=== PATIENT | female | born 1960 | race Caucasian/White ===

== ENCOUNTER 2017-11-05 06:43 | Day surgery (SDC) | payer OTHER, SELFPAY ==
[2017-11-02 09:35] VITALS: BMI 47.9
[2017-11-05] VITALS (7 sets, daily range): BP systolic 104–135; BP diastolic 58–90; PULSE 94–105; RESP 12–20; TEMP 36.4–37; O2SAT 92–95; BMI 47.9
--- NOTE | 2017-11-05 | PATH_ITS ---
[facility] Accession Number: [id number] . 01 Material submitted: . PART A: ENDOCERVICAL CURETTINGS PART B: ENDOMETRIAL CURETTINGS . 02 Diagnosis: A. Endocervical Curettings: Blood containing rare fragment of endocervical epithelium, negative for atypia. . B. Endometrial Curettings: Multiple fragments of endometrium consistent with fragments of benign endometrial polyp, negative for atypia. Tissue fragment consistent with submucous leiomyoma, negative for atypia. [facility]/11/06/2017 . 02 Electronically signed: . Raimundo Gregorio MD, Pathologist NPI- [id number] . 01 Gross description: . Received two formalin-filled containers, both labeled with the patient's name: . A. In a container labeled 1. ECC, the specimen consists of approximately a 1.0 cc aggregate of mucoid material and blood, which is filtered, wrapped, and entirely submitted in cassette A. B. In a container labeled endometrial curettings, the specimen consists of approximately a 7 cc aggregate of mucoid material and blood, which is filtered and entirely submitted in cassettes B1 and B2. ([id number]) /FRR . 02 Pathologist provided ICD-10: D25.9 . 02 CPT . 749752, [id number] Performed at: [address] [facility] [address] [facility], [place], [place] [id number] MD Lucio Veliz MD Phone: [phone] Performed at: 02 [facility] [address] [place], [place] [id number] MD Tremayne Scales MD Phone: [phone]
[2017-11-05] MEDS: LACTATED RINGERS 1,000 ML 42 ML IV (07:20)
--- NOTE | 2017-11-05 08:03 | PM.PREOP ---
Pre-operative Note Interval Note Pre-op Check: Yes History & Physical Reviewed by Physician Changes: No
[2017-11-05] MEDS: DOXYCYCLINE 100 MG in SODIUM CHLORIDE 0.9% 100 ML IV (10:18)
--- NOTE | 2017-11-05 10:39 | SUR.OPER ---
Lithotomy on padded OR bed, head on pillow, arms secured on padded arm boards at <90 degrees abduction. Legs secured in padded yellow fins stirrups.
[2017-11-05] MEDS: BUPIVACAINE 0.25% W/ EPI VIAL 50 ML INJ (10:48)
--- NOTE | 2017-11-05 11:18 | P.OP_ITS ---
Operative Date/Time/Diagnoses Date of procedure: 11/05/17 Time of procedure: 10:30 Pre-op diagnosis: Postmenopausal bleeding, thickened endometrium Post-op diagnosis: other (Postmenopausal bleeding, endometrial polyp) Procedure: Procedures Operation Date: 11/05/17 07:45 Actual Procedures Side Surgeon p Fractional Hysteroscopy D&C Pippa Peck MD Indications: The patient is a 57-year-old 2 para 2 female with postmenopausal bleeding here for hysteroscopy and dilation curettage for evaluation management of such. Preoperative evaluation included a transvaginal ultrasound, which showed anterior endometrial thickening, suggestive of possible 1.5 cm submucosal fibroid. The risks, benefits, limitations, alternatives, and expectations of surgery were discussed, and the consent was reviewed and signed prior to the surgery. Surgeon: Pippa Peck Anesthesia Type: General and Local (0.25% Marcaine with epi) Operative Notes Findings: Exam under anesthesia: The uterus was approximately 8 weeks in size and anteverted. There are no adnexal masses palpable. Posterior vaginal prolapse was noted, consistent with an enterocele and rectocele (approximately stage II). Hysteroscopic findings: The endometrial cavity was visualized, and the tubal ostia seen. A small, approximately 3-4 6 mm, endometrial polyp was noted at the lower uterine segment. The endometrium was thickened in appearance; however , upon completion of curettage no other endometrial masses were noted. Closure Type: not applicable Specimen(s): endometrial curettings and other (endocervical curettings) Estimated blood loss (mL): 3 Blood products transfused: none Procedure in detail: The patient was taken to the operating room where general anesthesia with LMA was administered without difficulty. She was then placed in the high dorsal lithotomy position with her lower extremities in [place] stirrups. Exam under anesthesia was then performed with the findings as noted above. Perineum and vagina were then prepped and draped in a sterile fashion, and in-and-out catheterization was performed. Procedure Time-Out was performed. A sterile bivalve speculum was then placed. The anterior lip of the cervix was then grasped with a single-toothed tenaculum. Local anesthetic using 0.25% Marcaine with epinephrine was then injected at the 2:00, 4:00, 7:00, and 10:00 positions for a paracervical block. The cervix was then serially dilated until a 22 F 30-degree hysteroscope could be gently advanced to the uterine fundus. Using sterile saline for distention, the uterine cavity was visualized with the findings as noted above. Endocervical curettage was performed followed by endometrial curettage on all 4 martínez of the uterus. A small amount of tissue was obtained and sent for pathology. Upon replacement of the hysteroscope, the polyp lesion was noted. The hysteroscope was then removed. Polyp forceps were then utilized to remove the 3-4 mm polyp. The hysteroscope was then reintroduced and no residual masses or polyps were noted. The hysteroscope and tenaculum were then removed. The tenaculum sites were hemostatic after application of pressure with a sponge stick. All instruments were then removed from the vagina. At this point, the procedure was deemed complete. Sponge, lap, and needle count were correct x3. There were no complications. The patient was then taken to the recovery room in stable condition. Complications: none Post-operative Condition: stable Disposition: same day surgery Plan for aftercare: PACU then home; see dishcarge instructions.
--- NOTE | 2017-11-05 11:49 | SUR.PHASEII ---
Mild sore throat. Small amount of dge to peripad with cough. New pads given to patient.
--- NOTE | 2017-11-05 12:13 | SUR.PHASEII ---
Discussed s/s of low blood sugar and to take precaution against such to day since nutritional intake will probably be limited. Somewhat deliberate in dsg and then using BR prolonging Phase II stay.
== END 2017-11-05 12:14 | disposition home or self-care (01) ==
PROVIDERS: Visit Provider Obstetrics & Gynecology
PROC: 0UDB8ZZ Extraction of Endometrium, Via Natural or Artificial Opening Endoscopic (ICD-10-PCS; CPT 58558; principal; 2017-11-05 07:45)
DX: D25.9 Leiomyoma of uterus, unspecified (principal); N84.0 Polyp of corpus uteri; E11.9 Type 2 diabetes mellitus without complications; I10 Essential (primary) hypertension; E66.9 Obesity, unspecified; G47.33 Obstructive sleep apnea (adult) (pediatric)
CPT/HCPCS: 58558; 88305; J1885; J2250; J2405; J2704; J3010

== ENCOUNTER 2018-05-12 20:31 | Emergency (ER) | payer OTHER, SELFPAY ==
[2018-05-12 20:37] VITALS: BP 131/59; PULSE 108; RESP 18; TEMP 36.7; O2SAT 93; BMI 47.2
--- NOTE | 2018-05-12 21:00 | ED_ITS ---
HPI - Ear Problem <DYLAN Lunsford-BC - Last Filed: 05/12/18 21:50> General Chief complaint: Ear Stated complaint: had sinus infection, now ears are clogged Time Seen by Provider: 05/12/18 20:42 Source: patient and family Mode of arrival: ambulatory Limitations: no limitations History of Present Illness HPI Narrative: Patient is a 57-year-old female with history of hypertension who presents with her for chief complaint of ears being plugged. She is a nonsmoker. She was started on amoxicillin for a sinus infection 3 days ago by an outside facility. She states then since then her ears have felt clogged. She denies any fevers nausea vomiting or diarrhea. She denies any shortness of breath or chest pain. She has tried to flush out her ears at home, as the provider on Sunday told her that they were clogged with wax. She has had no relief from this. She has been using sinus rinse, but no Flonase. Related Data Home Medications Medication Instructions Recorded Confirmed venlafaxine [Effexor XR] 150 mg PO QDAY #0 12/07/16 11/05/17 atorvastatin [Lipitor] 40 mg PO DAILY 11/02/17 11/05/17 hydrochlorothiazide 12.5 mg PO DAILY 11/02/17 11/05/17 lisinopril 10 mg PO DAILY 11/02/17 11/05/17 Allergies Allergy/AdvReac Type Severity Reaction Status Date / Time cephalexin [CEPHALEXIN] Allergy Mild Vomiting Verified 11/02/17 13:42 Review of Systems <FANNIE LunsfordBC - Last Filed: 05/12/18 21:50> Review of Systems GENERAL: Denies chills, fatigue, malaise, fever, sweats. HEENT: See HPI RESPIRATORY: See HPI CARDIOVASCULAR: Denies chest pain, palpitations, orthopnea, edema, GASTROINTESTINAL: Denies nausea, vomiting, abdominal pain, diarrhea, constipation, melena. : Denies dysuria, frequency, incontinence, hematuria, urinary retention. MUSCULOSKELETAL: denies weakness, joint pain, or bony pain SKIN: Denies rash, skin lesions, or other NEUROLOGIC: Denies weakness, headache, numbness, change in speech, confusion, seizures, incoordination. PSYCHIATRIC: No concerning psychosocial issues. 12 point review of systems is negative except for those stated above PFSH <PAULINE Lunsford - Last Filed: 05/12/18 21:50> Medical History (Updated 05/12/18 @ 21:42 by PAULINE Lunsford) Arthritis (Acute) Breast cancer, left breast (Acute) Depression (Acute) Diabetes (Acute) Edema (Acute) HTN (hypertension) (Acute) Hyperlipidemia (Acute) Insomnia (Acute) Lateral epicondylitis (Acute) Osteopenia (Acute) Sleep apnea with use of continuous positive airway pressure (CPAP) (Acute) Surgical History (Updated 11/02/17 @ 09:47 by Monica Mascorro RN) History of ankle surgery (Acute) Hx of cholecystectomy (Acute) Hx of shoulder surgery (Acute) S/P lumpectomy, left breast (Acute) Social History household members: spouse Smoking Status: Never smoker alcohol intake: current Social History household members: spouse Smoking Status: Never smoker alcohol intake: current Exam <PAULINE Lunsford - Last Filed: 05/12/18 21:50> Narrative Exam Narrative: GENERAL: Obese female lying on stretcher HEAD: Atraumatic. Normocephalic. No temporal or scalp tenderness. EYES: Pupils equal round and reactive. Extraocular motions intact. No scleral icterus. No injection or drainage. ENT: Nose without bleeding, purulent drainage or septal hematoma. Throat without erythema, tonsillar hypertrophy or exudate. Uvula midline. Airway patent. cerumen impaction noted left ear canal. Right TM pearly chirinos with cerumen. NECK: Trachea midline. No JVD or lymphadenopathy. Supple, nontender, no meningeal signs. CARDIOVASCULAR: Regular rate and rhythm without murmurs, gallops, or rubs. RESPIRATORY: Clear to auscultation. Breath sounds equal bilaterally. No wheezes, rales, or rhonchi. No cough on exam. No increased respiratory effort. No accessory muscle use. GASTROINTESTINAL: Abdomen soft, non-tender, nondistended. No hepato- splenomegaly, or palpable masses. No guarding. EXTREMITIES: No clubbing, cyanosis, or edema. No joint tenderness, effusion, or edema noted. BACK: Nontender without deformity or crepitance. No flank tenderness. NEURO: AOx3. SKIN: No rash or erythema. Initial Vital Signs Initial Vital Signs: Vital Signs Temperature 98.0 F 05/12/18 20:37 Pulse Rate 108 H 05/12/18 20:37 Respiratory Rate 18 05/12/18 20:37 Blood Pressure 131/59 L 05/12/18 20:37 Pulse Oximetry 93 05/12/18 20:37 <Keely Davis MD - Last Filed: 05/12/18 23:10> Initial Vital Signs Initial Vital Signs: Vital Signs Temperature 98.0 F 05/12/18 20:37 Pulse Rate 108 H 05/12/18 20:37 Respiratory Rate 18 05/12/18 20:37 Blood Pressure 131/59 L 05/12/18 20:37 Pulse Oximetry 93 05/12/18 20:37 Course <PAULINE Lunsford - Last Filed: 05/12/18 21:50> Vital Signs - 8 hr 05/12/18 20:37 05/12/18 21:50 Temperature 98.0 F Pulse Rate 108 H 98 H Respiratory Rate 18 18 Blood Pressure 131/59 L 123/76 Pulse Oximetry 93 99 <Keely Davis MD - Last Filed: 05/12/18 23:10> Vital Signs - 8 hr 05/12/18 20:37 05/12/18 21:50 Temperature 98.0 F Pulse Rate 108 H 98 H Respiratory Rate 18 18 Blood Pressure 131/59 L 123/76 Pulse Oximetry 93 99 Medical Decision Making <PAULINE Lunsford - Last Filed: 05/12/18 21:50> MDM Narrative Medical decision making narrative: The patient is a 57-year-old female who presents with a chief complaint of ear pressure. Exam reveals cerumen impaction. Her ears were flushed by nursing staff with good success. She still has no signs and symptoms of otitis media upon exam. She is already being treated for sinusitis with amoxicillin. Encouraged her to keep taking that and add Flonase to help decrease the pressure in her sinuses. She was concerned about her cough, but she is in no obvious respiratory distress, has clear lung sounds the med did not cough during my examination or re-evaluation in the emergency department. I encouraged her to follow up with her primary care provider. Discussed coming back to emergency department for any acute concerns such as chest pain shortness of breath concern for heart attack or stroke. Patient has no questions or concerns upon discharge. Discharge Plan Departure Patient Disposition: Home Clinical Impression: Cerumen impaction Qualifiers: Laterality: left Qualified Code(s): H61.22 - Impacted cerumen, left ear Discharge Date/Time: 05/12/18 21:50 Interventions: ED Discharge Assessment Last Done: 05/12/18 21:50 Instructions: DI for Cerumen Impaction, DI for Cough -- Adult, DI for Ear Pain- Adult Activity Restrictions/Additional Instructions: Today we flushed your ears as they were full of wax. I do not see any signs of infection at this point in time. I believe your cough is related to your sinus problems. Please continue taking her previously prescribed antibiotics. I would add Flonase to your regimen to help decrease the inflammation in your sinuses. Monitor for fever and increased work of breathing. Please follow up with her primary care provider. Please come back to the emergency department for any acute concerns such as chest pain shortness of breath concern for heart attack or stroke. Prescriptions: No Action venlafaxine [Effexor XR] 150 MG capsule,extended release 24hr 150 mg PO QDAY Qty: 0 RF: 0 atorvastatin [Lipitor] 40 mg Tablet 40 mg PO DAILY RF: 0 lisinopril 10 mg Tablet 10 mg PO DAILY RF: 0 hydrochlorothiazide 12.5 mg Capsule 12.5 mg PO DAILY RF: 0
[2018-05-12 21:50] VITALS: BP 123/76; PULSE 98; RESP 18; O2SAT 99
== END 2018-05-12 21:50 | disposition home or self-care (01) ==
PROVIDERS: Emergency Provider Nurse Practitioner Family
DX: H61.23 Impacted cerumen, bilateral (principal)
CPT/HCPCS: 69209; 69210; 99282; 99283

== ENCOUNTER 2019-02-09 11:42 | Emergency (ER) | payer OTHER, SELFPAY ==
[2019-02-09 11:48] VITALS: BP 149/92; PULSE 105; RESP 20; TEMP 36.7; O2SAT 94; BMI 46.7
[2019-02-09 13:00] LABS: Add Manual Diff / Slide Review NO; Basophils Absolute Auto 0 /uL (0-100); Basophils Percent Auto 0.3 % (0-2); Eosinophils Absolute Auto 100 /uL (0-450); Eosinophils Percent Auto 0.7 % (2-4); Hematocrit 41.7 % (36-46); Hemoglobin 14.1 g/dL (12.0-16.0); Lymphocytes Absolute Auto 1000 /uL (1100-4500); Lymphocytes Percent Auto 8.6 % (25-40); Mean Corpuscular HGB Conc 33.8 % (30-36); Mean Corpuscular Hemoglobin 31.5 PG (26-34); Mean Corpuscular Volume 93.4 fL (80-100); Monocytes Absolute Auto 600 /uL (0-900); Monocytes Percent Auto 5.3 % (3-14); Neutrophils Absolute Auto 10100 /uL (1500-7000); Neutrophils Percent Auto 85.1 % (50-75); Platelet Count 253 X10^3/uL (150-400); Red Blood Cell Count 4.47 X10^6/uL (4.0-5.2); Red Cell Distribution Width 13.2 % (11.6-14.8); White Blood Cell Count 11.8 X10^3/uL (4.5-11.0)
[2019-02-09] MEDS: DEXAMETHASONE 10 MG/ML VIAL IV (13:04)
[2019-02-09] MEDS: KETOROLAC 60 MG/2 ML VIAL 30 MG IV (13:04)
[2019-02-09] MEDS: SODIUM CHLORIDE 0.9% 1,000 ML 1000 ML IV (13:04)
[2019-02-09 13:11] LABS: Alanine Aminotransferase 17 IU/L (<35); Albumin 4.4 g/dL (3.5-5.0); Albumin Globulin Ratio 1.2 (1.0-2.8); Alkaline Phosphatase 111 U/L (38-126); Aspartate Aminotransferase 23 IU/L (14-36); BUN Creatinine Ratio 16.7 (6-22); Bilirubin Total 0.6 mg/dL (0.2-1.3); Blood Urea Nitrogen 10 mg/dL (7-17); Calcium 9.8 mg/dL (8.4-10.2); Carbon Dioxide 31 mmol/L (22-32); Chloride 101 mmol/L (98-107); Estimated Glomerular Filt Rate > 60.0 mL/min (>60); Globulin 3.6 g/dL (1.7-4.1); Glucose 154 mg/dL (70-100); HEMOLYSIS < 15 (0-50); Potassium 3.3 mmol/L (3.4-5.1); Sodium 141 mmol/L (137-145)
[2019-02-09] MEDS: CLINDAMYCIN 600 MG/50 ML PIGGYBACK 50 MG IV (13:11)
--- NOTE | 2019-02-09 13:12 | ED.URI ---
HPI - URI/Sore Throat <NED Lazo - Last Filed: 02/09/19 18:29> General Chief Complaint: Upper Respiratory Symptoms Stated Complaint: SORE THROAT GOES UP TO RIGHT INNER EAR Time Seen by Provider: 02/09/19 12:31 Source: patient Mode of arrival: Ambulatory History of Present Illness HPI Narrative: 58-year-old female presents to the emergency department complaining of right-sided throat pain starting yesterday. She states the pain is a dull aching that radiates from her throat up to her right ear. She reports this has came on gradually, she denies any other symptoms such as rhinorrhea or fevers. Patient states her voice has been more muffled this morning. She denies any sick contacts. However, she does report a chronic cough over the past 2-3 months which her primary care provider thought that this might have been from her lisinopril. Patient denies abdominal pain, nausea, vomiting, diarrhea, chest pain, shortness of breath, difficulty swallowing, decreased appetite, difficulty breathing, difficulty maintaining secretions, other concerns. Related Data Home Medications Medication Instructions Recorded Confirmed venlafaxine [Effexor XR] 150 mg PO QDAY #0 12/07/16 11/05/17 atorvastatin [Lipitor] 40 mg PO DAILY 11/02/17 11/05/17 hydrochlorothiazide 12.5 mg PO DAILY 11/02/17 11/05/17 lisinopril 10 mg PO DAILY 11/02/17 11/05/17 Previous Rx's Medication Instructions Recorded clindamycin phosphate 450 mg IM Q8H 14 Days #126 ml 02/09/19 prednisone 50 mg PO DAILY 5 Days #5 tab 02/09/19 Allergies Allergy/AdvReac Type Severity Reaction Status Date / Time cephalexin [CEPHALEXIN] Allergy Mild Vomiting Verified 02/09/19 11:54 Review of Systems <NED Lazo - Last Filed: 02/09/19 18:29> Review of Systems Narrative: REVIEW OF SYSTEMS: GENERAL: Denies fevers. HENT: No head trauma or hearing loss. Patient reports sore throat, see HPI. EYES: No loss of vision, double vision, eye pain, irritation or discharge. CARDIOVASCULAR: No chest pain or syncope. RESPIRATORY: No shortness of breath. GASTROINTESTINAL: No nausea, vomiting, diarrhea, or constipation. MUSCULOSKELETAL: No weakness or injury. INTEGUMENTARY: No rash, lesions, or pruritus. NEURO: No memory loss, or confusion. Patient History <NED Lazo - Last Filed: 02/09/19 18:29> Medical History Arthritis (Acute) Breast cancer, left breast (Acute) Depression (Acute) Diabetes (Acute) Edema (Acute) HTN (hypertension) (Acute) Hyperlipidemia (Acute) Insomnia (Acute) Lateral epicondylitis (Acute) Osteopenia (Acute) Sleep apnea with use of continuous positive airway pressure (CPAP) (Acute) Surgical History History of ankle surgery (Acute) Hx of cholecystectomy (Acute) Hx of shoulder surgery (Acute) S/P lumpectomy, left breast (Acute) Social History household members: spouse Smoking Status: Never smoker alcohol intake: current Smoking Status: Never smoker Substance Use Type: does not use Exam <NED Lazo - Last Filed: 02/09/19 18:29> Initial Vital Signs Initial Vital Signs: Vital Signs Temperature 98.0 F 02/09/19 11:48 Pulse Rate 105 H 02/09/19 11:48 Respiratory Rate 20 02/09/19 11:48 Blood Pressure 149/92 H 02/09/19 11:48 Pulse Oximetry 94 02/09/19 11:48 PHYSICAL EXAMINATION: GENERAL: Well groomed, alert, and cooperative. Answers questions promptly and appropriately. Vital signs noted. HENT: Normocephalic, atraumatic. Ear canals patent. TMs intact without mucus or erythema. Oropharynx with significant erythema and swelling noted to right side. Difficult to visualize entire uvula due to body habitus. Left side without swelling or erythema. Patient's voice was muffled initially, after administration of medications patient's muscle tone improved significantly. Patient was maintaining secretions throughout the emergency department stay. EYES: Conjunctiva pink, sclera white, no periorbital swelling. No discharge. CHEST: Normal to inspection and without deformities. CARDIOVASCULAR: S1 and S2 sounds normal. Regular rate and rhythm, no murmurs, clicks, or bruits. RESPIRATORY: Normal respiratory rate, trachea midline, airway patent. No stridor, nasal flaring or accessory muscle use. Able to speak in full sentences. Lungs are clear in all perez without wheeze, rhonchi, or crackles. MUSCULOSKELETAL: Normal gait and coordination. Equal tone and mass bilaterally. EXTREMITIES: Moves all extremities. SKIN: Warm, dry, soft, appropriate color for ethnicity. No lesions, rashes, or wounds. NEURO: Alert and Oriented X 3. Good coordination. No ataxia or cognitive issues. PSYCH: Appropriate affect and mood. <Zaira Dhillon DO - Last Filed: 02/12/19 08:01> Initial Vital Signs Initial Vital Signs: Vital Signs Temperature 98.0 F 02/09/19 11:48 Pulse Rate 105 H 02/09/19 11:48 Respiratory Rate 20 02/09/19 11:48 Blood Pressure 149/92 H 02/09/19 11:48 Pulse Oximetry 94 02/09/19 11:48 Course <NED Lazo - Last Filed: 02/09/19 18:29> Course Course Narrative: Patient was given 1 L of normal saline, 10 of dexamethasone, clindamycin IV, and Toradol in the emergency department. After administration of these medication she had significantly improved pain, decreased discomfort with swallowing, voice improvement, and patient reported she was feeling much better overall. Patient able to get liquids without difficulty. Orders Ordered: Discontinued Medications Dexamethasone (Decadron) 10 mg IV NOW ONE Stop: 02/09/19 12:43 Last Admin: 02/09/19 13:04 Dose: 10 mg Documented by: VANESSA Sodium Chloride (Normal Saline 0.9%) 1,000 mls @ 1,000 mls/hr IV BOLUS ONE Stop: 02/09/19 13:41 Last Infusion: 02/09/19 14:14 Dose: 0 mls/hr Documented by: Admin: 02/09/19 13:04 Dose: 1,000 mls/hr Documented by: VANESSA Clindamycin Phosphate (Cleocin) 600 mg in 50 mls @ 50 mls/hr IV NOW ONE Stop: 02/09/19 13:43 Last Infusion: 02/09/19 14:13 Dose: 0 mls/hr Documented by: Admin: 02/09/19 13:11 Dose: 50 mls/hr Documented by: VANESSA Ketorolac Tromethamine (Toradol) 30 mg IV NOW ONE Stop: 02/09/19 12:43 Last Admin: 02/09/19 13:04 Dose: 30 mg Documented by: VANESSA Consultations Consultation #1: Patient staffed with Dr. Dhillon. Vital Signs Vital signs: Vital Signs - 8 hr 02/09/19 11:48 02/09/19 14:26 Temperature 98.0 F Pulse Rate 105 H 94 H Respiratory Rate 20 16 Blood Pressure 149/92 H Blood Pressure [Right Arm] 146/78 H Pulse Oximetry 94 97 <Zaira Dhillon DO - Last Filed: 02/12/19 08:01> Orders Ordered: Discontinued Medications Dexamethasone (Decadron) 10 mg IV NOW ONE Stop: 02/09/19 12:43 Last Admin: 02/09/19 13:04 Dose: 10 mg Documented by: VANESSA Sodium Chloride (Normal Saline 0.9%) 1,000 mls @ 1,000 mls/hr IV BOLUS ONE Stop: 02/09/19 13:41 Last Infusion: 02/09/19 14:14 Dose: 0 mls/hr Documented by: Admin: 02/09/19 13:04 Dose: 1,000 mls/hr Documented by: VANESSA Clindamycin Phosphate (Cleocin) 600 mg in 50 mls @ 50 mls/hr IV NOW ONE Stop: 02/09/19 13:43 Last Infusion: 02/09/19 14:13 Dose: 0 mls/hr Documented by: Admin: 02/09/19 13:11 Dose: 50 mls/hr Documented by: VANESSA Ketorolac Tromethamine (Toradol) 30 mg IV NOW ONE Stop: 02/09/19 12:43 Last Admin: 02/09/19 13:04 Dose: 30 mg Documented by: VANESSA Vital Signs Vital signs: Vital Signs - 8 hr 02/09/19 11:48 02/09/19 14:26 Temperature 98.0 F Pulse Rate 105 H 94 H Respiratory Rate 20 16 Blood Pressure 149/92 H Blood Pressure [Right Arm] 146/78 H Pulse Oximetry 94 97 MDM - URI/Sore Throat <NED Lazo - Last Filed: 02/09/19 18:29> Medical Records Attestation: I reviewed the patient's medical records. Lab Data Attestation: I reviewed the patient's lab results. Result diagrams: 02/09/19 12:54 02/09/19 12:54 Labs: Lab Results 02/09/19 02/09/19 Range/Units 12:54 12:54 WBC 11.8 H (4.5-11.0) X10^3/uL RBC 4.47 (4.0-5.2) X10^6/uL Hgb 14.1 (12.0-16.0) g/dL Hct 41.7 (36-46) % MCV 93.4 (80-100) fL MCH 31.5 (26-34) PG MCHC 33.8 (30-36) % RDW 13.2 (11.6-14.8) % Plt Count 253 (150-400) X10^3/uL Neut % (Auto) 85.1 H (50-75) % Lymph % (Auto) 8.6 L (25-40) % [place] % (Auto) 5.3 (3-14) % Eos % (Auto) 0.7 L (2-4) % Baso % (Auto) 0.3 (0-2) % Neut # (Auto) 12933 H (3724-8661) /uL Lymph # (Auto) 1000 L (6582-4235) /uL [place] # (Auto) 600 (0-900) /uL Eos # (Auto) 100 (0-450) /uL Baso # (Auto) 0 (0-100) /uL Sodium 141 (137-145) mmol/L Potassium 3.3 L (3.4-5.1) mmol/L Chloride 101 (98-107) mmol/L Carbon Dioxide 31 (22-32) mmol/L BUN 10 (7-17) mg/dL Creatinine 0.60 (0.52-1.04) mg/dL Estimated GFR > 60.0 (>60) mL/min BUN/Creatinine Ratio 16.7 (6-22) Glucose 154 H (70-100) mg/dL Calcium 9.8 (8.4-10.2) mg/dL Total Bilirubin 0.6 (0.2-1.3) mg/dL AST 23 (14-36) IU/L ALT 17 (<35) IU/L Alkaline Phosphatase 111 (38-126) U/L Total Protein 8.0 (6.3-8.2) g/dL Albumin 4.4 (3.5-5.0) g/dL Globulin 3.6 (1.7-4.1) g/dL Albumin/Globulin Ratio 1.2 (1.0-2.8) Point of Care Testing Rapid Strep A Negative MDM Narrative Medical decision making narrative: This is a 50-year-old healthy appearing female who presents emergency department for right-sided throat swelling for the past 24 hours. Increased suspicion for tonsillar abscess due to unilateral presentation, full voice, and complains of right-sided throat pain. There was significant improvement after administration of medications such as dexamethasone and IV clindamycin. Patient being changed secretions throughout the entire emergency department stay and remained hemodynamically stable. She was able to consume liquids before returning home. POC strep test was negative for strep. She was encouraged to follow up with her primary care provider in 1-2 weeks for re-evaluation. She was discharged on p.o. prednisone and clindamycin to help with swelling and infection. She was given very strict return precautions for new or worsening symptoms such as dysphagia, drooling, or except drip. Tooth plan of care verbalized understanding. <Zaira Dhillon, DO - Last Filed: 02/12/19 08:01> Lab Data Attestation: I reviewed the patient's lab results. Labs: Lab Results 02/09/19 02/09/19 Range/Units 12:54 12:54 WBC 11.8 H (4.5-11.0) X10^3/uL RBC 4.47 (4.0-5.2) X10^6/uL Hgb 14.1 (12.0-16.0) g/dL Hct 41.7 (36-46) % MCV 93.4 (80-100) fL MCH 31.5 (26-34) PG MCHC 33.8 (30-36) % RDW 13.2 (11.6-14.8) % Plt Count 253 (150-400) X10^3/uL Neut % (Auto) 85.1 H (50-75) % Lymph % (Auto) 8.6 L (25-40) % [place] % (Auto) 5.3 (3-14) % Eos % (Auto) 0.7 L (2-4) % Baso % (Auto) 0.3 (0-2) % Neut # (Auto) 61547 H (7125-7070) /uL Lymph # (Auto) 1000 L (0100-7070) /uL [place] # (Auto) 600 (0-900) /uL Eos # (Auto) 100 (0-450) /uL Baso # (Auto) 0 (0-100) /uL Sodium 141 (137-145) mmol/L Potassium 3.3 L (3.4-5.1) mmol/L Chloride 101 (98-107) mmol/L Carbon Dioxide 31 (22-32) mmol/L BUN 10 (7-17) mg/dL Creatinine 0.60 (0.52-1.04) mg/dL Estimated GFR > 60.0 (>60) mL/min BUN/Creatinine Ratio 16.7 (6-22) Glucose 154 H (70-100) mg/dL Calcium 9.8 (8.4-10.2) mg/dL Total Bilirubin 0.6 (0.2-1.3) mg/dL AST 23 (14-36) IU/L ALT 17 (<35) IU/L Alkaline Phosphatase 111 (38-126) U/L Total Protein 8.0 (6.3-8.2) g/dL Albumin 4.4 (3.5-5.0) g/dL Globulin 3.6 (1.7-4.1) g/dL Albumin/Globulin Ratio 1.2 (1.0-2.8) Point of Care Testing Rapid Strep A Negative MDM Narrative Medical decision making narrative: Patient was seen by myself, HPI was reviewed and on physical exam patient does have some swelling on the right tonsillar area with very mild shift of the uvula. Patient is mild to moderately muffled voice although tolerating fluids and able to drink hot tea while in the room. Patient does not appear to be in any distress or have any difficulty with breathing. Peritonsillar abscess is suspected and we discussed appropriate treatment including IV fluids, Decadron, dose of Toradol if patient needs for pain, initial dose of IV antibiotics followed by p.o. prednisone and antibiotics after patient had improved here in the department. Discharge Plan Departure Patient Disposition: Home Clinical Impression: Tonsil, abscess Discharge Date/Time: 02/09/19 14:27 Instructions: DI for Peritonsillar Abscess -- Adult Activity Restrictions/Additional Instructions: Thank you for entrusting me with your care today. As discussed, it appears you most likely have a tonsillar abscess. You were given IV fluids, antibiotics, and steroids in the emergency department. You been prescribed antibiotics and steroids, it is very important you take these as directed. Please call your primary care provider tomorrow to schedule appointment within 1-2 weeks for re-evaluation. Return to the emergency department for worsening swelling, difficulty swallowing, drooling, high fevers, chest pain, shortness of breath, or other new or worsening symptoms. Prescriptions: New clindamycin phosphate 150 mg/mL solution 450 mg IM Q8H 14 Days Qty: 126 RF: 0 prednisone 50 mg tablet 50 mg PO DAILY 5 Days Qty: 5 RF: 0 No Action venlafaxine [Effexor XR] 150 MG capsule,extended release 24hr 150 mg PO QDAY Qty: 0 RF: 0 atorvastatin [Lipitor] 40 mg Tablet 40 mg PO DAILY RF: 0 lisinopril 10 mg Tablet 10 mg PO DAILY RF: 0 hydrochlorothiazide 12.5 mg Capsule 12.5 mg PO DAILY RF: 0
[2019-02-09 14:26] VITALS: BP 146/78; PULSE 94; RESP 16; O2SAT 97
== END 2019-02-09 14:27 | disposition home or self-care (01) ==
PROVIDERS: Emergency Provider Nurse Practitioner
DX: J36 Peritonsillar abscess (principal); R05 Cough
CPT/HCPCS: 36415; 80053; 85025; 87880; 96365; 96375; 99284; J1100; J1885

== ENCOUNTER → 2019-08-04 10:15 | Outpatient (CLI) | payer OTHER, SELFPAY ==
--- NOTE | 2019-08-04 10:16 | DI.NM.S_ITS ---
PROCEDURE: [place] BONE SCAN WHOLE BODY RADIOPHARMACEUTICAL: 19.8 mCi Tc-99m MDP IV. INDICATIONS: breast cancer TECHNIQUE: Delayed whole-body scintigrams were obtained approximately 3-4 hours after intravenous injection of radiotracer. Anterior and posterior views were acquired from vertex to feet. Additional left and right oblique views of the ribs were obtained. COMPARISON: [facility], [place], PET NECK TO MID THIGH, 05/23/2019, 13:23. [facility], , XR CXR 2V, 07/18/2019, 13:42. FINDINGS: There are multifocal areas of right rib tracer activity probably involving the sixth seventh and eighth ribs, with linear distribution. No definite correlate is seen on the recent PET CT dated 05/23/19 Physiologic tracer uptake seen in the kidneys and bladder. There is diffuse spine tracer activity which could be discogenic, although recommend correlation and if necessary followup anatomic imaging. Bilateral periarticular tracer uptake at the hips, knees and ankles may be arthritic. Mildly asymmetric bilateral sternoclavicular tracer activity could also be degenerative IMPRESSION: Multifocal tracer uptake involving the right posterior ribs (probably right sixth-eighth ribs) which could be posttraumatic given the linear distribution however technically nonspecific. Recommend clinical correlation and if necessary further assessment with anatomic studies. Dictated by: Erick Kemp M.D. on 08/04/2019 at 15:59 Approved by: Erick Kemp M.D. on 08/04/2019 at 16:08
== END ==
PROVIDERS: Referring Provider Internal Medicine Hematology & Oncology; Visit Provider Internal Medicine Hematology & Oncology
DX: C78.01 Secondary malignant neoplasm of right lung; Z85.3 Personal history of malignant neoplasm of breast
CPT/HCPCS: 78306; A9503

== ENCOUNTER → 2019-10-30 14:00 | Outpatient (CLI) | payer OTHER, SELFPAY ==
--- NOTE | 2019-10-30 14:02 | DI.CT.S_ITS ---
PROCEDURE: CT CHEST ABD PEL W CON INDICATIONS: METASTATIC BREAST CANCER TECHNIQUE: After the administration of oral and intravenous contrast, 5 mm thick sections acquired from the lung apices to the symphysis. 5 mm coronal and sagittal reformats were performed, with additional 7 mm coronal MIP reformats through the lungs. For radiation dose reduction, the following was used: automated exposure control, adjustment of mA and/or kV according to patient size. COMPARISON: [facility], CT, CT BIOPSY LUNG/MEDIASTINUM, 04/10/2019, 8:39. [facility], [place], PET NECK TO MID THIGH, 05/23/2019, 13:23. [facility], CT, CHEST ABDOMEN PELVIS WITH CONTRAST, 04/19/2007, 12:42. FINDINGS: Image quality: Excellent. CHEST: Lungs and pleura: A few areas of curvilinear opacity in the lungs which may be due to atelectasis or scarring. No consolidative opacity. A few pulmonary nodules or nodular opacities measuring 3 mm or less. For example left upper lobe (3/75, 61), right middle lobe, (3/128). Overall many of these pulmonary nodules appear decreased in size compared to 05/23/2019. No pleural effusions or pneumothorax. Central and peripheral airways appear patent and normal in caliber. Mediastinum: Heart size is normal. No pericardial effusion. Small pericardial lymph node anteriorly is unchanged since 2007. No mediastinal or hilar adenopathy by size criteria. Thoracic aorta and central pulmonary arteries are normal in size. Esophagus is normal in caliber. No hiatal hernia. Chest wall: Left breast clips. Left axillary clips. No internal mammary lymph nodes identified. Left supraclavicular node measuring 1.2 x 0.9 cm, (2/9)., previously 1.8 x 1.6 cm on 05/23/2019. This was previously FDG avid. Thyroid gland is unremarkable. ABDOMEN: Solid organs: Liver is normal in size. Suspect hepatic steatosis. No focal lesion. Gallbladder is absent. Biliary system is non dilated. Pancreas enhances normally. Spleen is normal in size and enhancement. No adrenal nodules. Near symmetric enhancement of the kidneys. There is an obstructing calculus in the proximal right ureter measuring 0.9 cm, (2/80). Moderate hydronephrosis of the right kidney. This calculus is similar to 05/23/2019. Punctate nonobstructing calculus in the left kidney is unchanged. No hydronephrosis on the left. Peritoneum and bowel: Bowel loops demonstrate normal wall thickness and caliber. Diverticulosis. Normal appendix. No free fluid or air. Nodes and vessels: No retroperitoneal or mesenteric adenopathy by size criteria. Stable calcification in the left pelvis. Right lateral peritoneal calcification unchanged. Aorta and inferior vena cava are normal in size. Miscellaneous: No ventral hernias. PELVIS: Genitourinary: Bladder wall thickness is normal. Suspect uterine fibroid. Miscellaneous: No inguinal hernias or adenopathy. Bones: No suspicious bony lesions. No vertebral body compression fractures. IMPRESSION: 1. Overall interval decrease in the small pulmonary nodules bilaterally. 2. Interval decrease in the left subclavicular lymph nodes. 3. No new or enlarging sites of disease. 4. Obstructing calculus in the proximal right ureter with moderate hydronephrosis. Overall this is unchanged since May 2019. Dictated by: Fantasma Mcneil M.D. on 10/30/2019 at 17:26 Approved by: Fantasma Mcneil M.D. on 10/30/2019 at 17:44
== END ==
PROVIDERS: PCP Student in an Organized Health Care Education/Training Program; Referring Provider Internal Medicine Hematology & Oncology; Visit Provider Internal Medicine Hematology & Oncology
DX: C50.912 Malignant neoplasm of unspecified site of left female breast (principal); C78.00 Secondary malignant neoplasm of unspecified lung; R59.0 Localized enlarged lymph nodes; N13.2 Hydronephrosis with renal and ureteral calculous obstruction; Z90.49 Acquired absence of other specified parts of digestive tract
CPT/HCPCS: 71260; 74177; Q9967

== ENCOUNTER 2019-11-16 21:06 | Emergency (ER) | payer OTHER, SELFPAY ==
--- NOTE | 2019-11-16 21:07 | ED.ABDPAIN ---
HPI - Abdominal Pain General Chief Complaint: Urogenital-Female Stated Complaint: pelvic pain Time Seen by Provider: 11/16/19 21:07 Source: patient and family Mode of arrival: Ambulatory Limitations: no limitations History of Present Illness HPI narrative: 59-year-old female nonsmoker with history of hypertension, hyperlipidemia, type 2 diabetes, and breast cancer with metastasis to her lungs presents with a chief complaint of severe left lower quadrant pain with radiation to her back around her flank. She states the pain seems to be worse when she moves and improves with rest. It has been significantly worsening over the course of the day and she is starting to feel ill. She denies any fever but has had chills. She has had nausea but denies any vomiting. She has had some urinary frequency and urgency but denies any blood. She been having some discomfort and had an outpatient CT scan a week or 2 ago which noted an obstructing stone in the proximal RIGHT ureter with moderate hydronephrosis that been unchanged since the scan from May 2019. She has been having difficulty getting a referral to urology. She has been NPO since [id number] complaint: flank pain Onset (ago): day(s) Pain Consistency: constant Location: LLQ and L flank Severity: severe Severity scale (1-10): 8 Quality: aching and sharp Radiation: L flank Relieving factors: rest Exacerbating factors: movement Related Data Home Medications Medication Instructions Recorded Confirmed venlafaxine [Effexor XR] 150 mg PO QDAY #0 12/07/16 11/03/19 atorvastatin [Lipitor] 40 mg PO DAILY 11/02/17 11/03/19 hydrochlorothiazide 25 mg PO DAILY 11/02/17 11/03/19 losartan 50 mg DAILY 07/21/19 11/03/19 metformin 2,000 mg PO DAILY 07/21/19 11/03/19 amoxicillin 500 mg PO TID 11/03/19 11/03/19 Previous Rx's Medication Instructions Recorded letrozole [Femara] 2.5 mg PO DAILY #90 tab 11/03/19 palbociclib [Ibrance] 125 mg PO DAILY #63 cap 11/03/19 Allergies Allergy/AdvReac Type Severity Reaction Status Date / Time cephalexin [CEPHALEXIN] Allergy Mild Vomiting Verified 02/09/19 11:54 Review of Systems Constitutional Constitutional: Denies chills, Denies fatigue, Denies fever(s), Denies frequent falls, Denies lethargy and Denies weakness Eyes Eyes: Denies change in vision, Denies eye discharge, Denies irritation and Denies loss of vision ENT Ears, Nose, Mouth, and Throat: Denies change in voice, Denies dizziness, Denies neck pain, Denies sore throat and Denies throat swelling Cardiovascular Cardiovascular: Denies chest pain, Denies irregular heart rhythm, Denies lightheadedness, Denies palpitations, Denies dyspnea, Denies dyspnea on exertion and Denies orthopnea Respiratory Respiratory: Denies cough, Denies dyspnea, Denies dyspnea on exertion and Denies wheezing Gastrointestinal Gastrointestinal: Denies abdominal pain, Denies change in bowel habits, Denies diarrhea, Denies nausea and Denies vomiting Genitourinary Genitourinary: Reports nocturia Genitourinary: Reports difficulty voiding, Reports nocturia and Reports pelvic pain Musculoskeletal Musculoskeletal: Denies neck pain and Denies numbness Integumentary/Breasts Skin/Breast: Denies pruritus, Denies erythema, Denies rash and Denies wounds Neurologic Neurologic: Denies behavioral changes, Denies confusion, Denies dizziness, Denies frequent falls, Denies loss of vision, Denies numbness and Denies weakness Psychiatric Psychiatric: Denies anxiety, Denies behavioral changes, Denies confusion, Denies depression, Denies homicidal ideation and Denies suicidal ideation Endocrine Endocrine: Denies fatigue, Denies flushing and Denies palpitations Hematologic/Lymphatic Hematologic/Lymphatic: Denies easy bruising Allergic/Immunologic Allergic/Immunologic: Denies urticaria, Denies throat swelling and Denies wheezing Patient History Medical History Arthritis (Acute) Breast cancer, left breast (Acute) Depression (Acute) Diabetes (Acute) Edema (Acute) HTN (hypertension) (Acute) Hyperlipidemia (Acute) Insomnia (Acute) Lateral epicondylitis (Acute) Osteopenia (Acute) Sleep apnea with use of continuous positive airway pressure (CPAP) (Acute) Surgical History History of ankle surgery (Acute) Hx of cholecystectomy (Acute) Hx of shoulder surgery (Acute) S/P lumpectomy, left breast (Acute) Social History household members: spouse Smoking Status: Never smoker alcohol intake: current (occasionally) substance use type: does not use Smoking Status: Never smoker Substance Use Type: does not use Exam Narrative Exam Narrative: GENERAL: [59] year old patient appears stated age. Well-nourished, well-developed patient, in moderate distress. Obviously uncomfortable HEAD: Atraumatic. Normocephalic. EYES: Pupils equal round and reactive. Extraocular motions intact. No scleral icterus. No injection or drainage. ENT: Nose without bleeding, purulent drainage. Throat without erythema, tonsillar hypertrophy or exudate. Airway patent. NECK: Trachea midline. Non tender CARDIOVASCULAR: Regular rate and rhythm without murmurs, gallops, or rubs. RESPIRATORY: Clear to auscultation. Breath sounds equal bilaterally. No wheezes, rales, or rhonchi. GASTROINTESTINAL: Abdomen soft, non-tender, nondistended. EXTREMITIES: No edema or joint tenderness. BACK: Nontender without deformity or crepitance. No flank tenderness. NEURO: AOx3. SKIN: No rash or erythema of visible areas Initial Vital Signs Initial Vital Signs: Vital Signs Temperature 98.3 F 11/16/19 21:14 Pulse Rate 106 H 11/16/19 21:14 Respiratory Rate 20 11/16/19 21:14 Blood Pressure 164/99 H 11/16/19 21:14 Pulse Oximetry 95 11/16/19 21:14 Course Orders Ordered: ED Orders 11/16/19 21:34 Complete Blood Count AUTO DIFF Stat Comprehensive Metabolic Panel Stat 11/16/19 21:42 Urine Culture Stat Urine Microscopic Stat 11/16/19 22:25 CT kidney ureter bladder (KUB) Stat 11/17/19 00:02 COVID19 -ED/INPAT/OR/L&D Stat Discontinued Medications Sodium Chloride (Normal Saline 0.9%) 1,000 mls @ 1,000 mls/hr IV BOLUS ONE Stop: 11/16/19 22:18 Last Admin: 11/16/19 21:44 Dose: 1,000 mls/hr Documented by: HARDEEP Levofloxacin (Levaquin) 500 mg in 100 mls @ 100 mls/hr IV NOW ONE Stop: 11/16/19 23:19 Last Infusion: 11/17/19 00:10 Dose: 0 mls/hr Documented by: Admin: 11/16/19 22:29 Dose: 100 mls/hr Documented by: HARDEEP Ketorolac Tromethamine (Toradol) 15 mg IV NOW ONE Stop: 11/16/19 21:20 Last Admin: 11/16/19 21:44 Dose: 15 mg Documented by: HARDEEP Consultations Consultation #1: Dr. Burch (urology at [facility]) in agreement with plan to transfer for likely trip to the OR, requests patient stay NPO, call to Hospitalist Consultation #2: Dr. Caceres (hospitalist at [facility]) happy to accept Vital Signs Vital signs: Vital Signs - 8 hr 11/16/19 21:14 11/16/19 23:02 11/16/19 23:30 Temperature 98.3 F Pulse Rate 106 H 99 H 105 H Respiratory Rate 20 Blood Pressure 164/99 H Pulse Oximetry 95 91 95 11/16/19 23:57 11/17/19 00:00 Temperature Pulse Rate 104 H 102 H Respiratory Rate Blood Pressure 131/74 Pulse Oximetry 97 95 MDM - Abdominal Pain Lab Data Result diagrams: 11/16/19 21:34 11/16/19 21:34 Labs: Lab Results 11/16/19 11/16/19 11/16/19 Range/Units 21:34 21:34 21:42 WBC 8.3 (4.5-11.0) X10^3/uL RBC 3.49 L (4.0-5.2) X10^6/uL Hgb 12.0 (12.0-16.0) g/dL Hct 35.6 L (36-46) % MCV 102.0 H (80-100) fL MCH 34.2 H (26-34) PG MCHC 33.5 (30-36) % RDW 21.6 H (11.6-14.8) % Plt Count 350 (150-400) X10^3/uL Neut % (Auto) 64.9 (50-75) % Lymph % (Auto) 24.0 L (25-40) % [place] % (Auto) 9.1 (3-14) % Eos % (Auto) 0.8 L (2-4) % Baso % (Auto) 1.2 (0-2) % Neut # (Auto) 5400 (8842-8710) /uL Lymph # (Auto) 2000 (0001-2634) /uL [place] # (Auto) 800 (0-900) /uL Eos # (Auto) 100 (0-450) /uL Baso # (Auto) 100 (0-100) /uL RBC Morphology See below Anisocytosis 1+ H Sodium 139 (137-145) mmol/L Potassium 3.5 (3.4-5.1) mmol/L Chloride 97 L (98-107) mmol/L Carbon Dioxide 30 (22-32) mmol/L BUN 18 H (7-17) mg/dL Creatinine 1.69 H (0.52-1.04) mg/dL Estimated GFR 31.0 L (>60) mL/min BUN/Creatinine Ratio 10.7 (6-22) Glucose 148 H (70-100) mg/dL Calcium 10.4 H (8.4-10.2) mg/dL Total Bilirubin 0.6 (0.2-1.3) mg/dL AST 35 (14-36) IU/L ALT 34 (<35) IU/L Alkaline Phosphatase 137 H (38-126) U/L Total Protein 9.2 H (6.3-8.2) g/dL Albumin 4.7 (3.5-5.0) g/dL Globulin 4.5 H (1.7-4.1) g/dL Albumin/Globulin Ratio 1.0 (1.0-2.8) Urine RBC 30-100/hpf H (0-5/HPF) Urine WBC 30-100/hpf H (0-5/HPF) Ur Squamous Epith Cells 1-5 /hpf (0-5/HPF) Urine Bacteria Many (>30) H (None) Ur Culture Indicated? Specimen cultured COVID-19 PCR (Negative) 11/17/19 Range/Units 00:02 WBC (4.5-11.0) X10^3/uL RBC (4.0-5.2) X10^6/uL Hgb (12.0-16.0) g/dL Hct (36-46) % MCV (80-100) fL MCH (26-34) PG MCHC (30-36) % RDW (11.6-14.8) % Plt Count (150-400) X10^3/uL Neut % (Auto) (50-75) % Lymph % (Auto) (25-40) % [place] % (Auto) (3-14) % Eos % (Auto) (2-4) % Baso % (Auto) (0-2) % Neut # (Auto) (0490-7161) /uL Lymph # (Auto) (8602-3606) /uL [place] # (Auto) (0-900) /uL Eos # (Auto) (0-450) /uL Baso # (Auto) (0-100) /uL RBC Morphology Anisocytosis Sodium (137-145) mmol/L Potassium (3.4-5.1) mmol/L Chloride (98-107) mmol/L Carbon Dioxide (22-32) mmol/L BUN (7-17) mg/dL Creatinine (0.52-1.04) mg/dL Estimated GFR (>60) mL/min BUN/Creatinine Ratio (6-22) Glucose (70-100) mg/dL Calcium (8.4-10.2) mg/dL Total Bilirubin (0.2-1.3) mg/dL AST (14-36) IU/L ALT (<35) IU/L Alkaline Phosphatase (38-126) U/L Total Protein (6.3-8.2) g/dL Albumin (3.5-5.0) g/dL Globulin (1.7-4.1) g/dL Albumin/Globulin Ratio (1.0-2.8) Urine RBC (0-5/HPF) Urine WBC (0-5/HPF) Ur Squamous Epith Cells (0-5/HPF) Urine Bacteria (None) Ur Culture Indicated? COVID-19 PCR Negative (Negative) Point of care testing: Urine Dip Bedside Urine Glucose Negative Bedside Urine Bilirubin - Negative Bedside Urine Ketone - Negative Urine Specific Simpson 1.015 Bedside Urine Occult Blood +++ Bedside Urine pH 6.5 Bedside Urine Protein - Negative Bedside Urine Urobilinogen - Negative Bedside Urine Nitrite - Negative Bedside Urine Leukocytes ++ [address] scan - abdomen/pelvis: Radiologist's Impression: Mild to moderate right-sided hydronephrosis (seen on prior studies few weeks ago, and in May) Moderate left-sided hydro ureteral nephrosis with 4 mm stone in mid left ureter MDM Narrative Medical decision making narrative: Immunocompromised patient with obstructing uropathy in the setting of UTI with acute kidney injury requires transfer to facility with Urology for intervention Critical Care Time Critical Care Time Critical Care Time: Yes Total Critical Care Time: 30 Attestation: The high probability of a clinically significant, sudden or life threatening deterioration of the [] system(s) required my full and direct attention, intervention and personal management. The aggregate critical care time was [30] minutes. This time is in addition to time spent performing reported procedures but includes the following: [x] Data Review and interpretation [x] Patient assessment and monitoring of vital signs [x] Documentation []x Medication orders and management Discharge Plan Departure Prescriptions: No Action venlafaxine [Effexor XR] 150 MG capsule,extended release 24hr 150 mg PO QDAY Qty: 0 RF: 0 losartan 50 mg Tablet 50 mg DAILY RF: 0 metformin 1,000 mg Tablet 2,000 mg PO DAILY RF: 0 amoxicillin 500 mg Tablet 500 mg PO TID RF: 0 Ibrance 125 mg Capsule 125 mg PO DAILY Qty: 63 RF: 3 letrozole [Femara] 2.5 mg Tablet 2.5 mg PO DAILY Qty: 90 RF: 3 atorvastatin [Lipitor] 40 mg Tablet 40 mg PO DAILY RF: 0 hydrochlorothiazide 12.5 mg Capsule 25 mg PO DAILY RF: 0
[2019-11-16 21:14] VITALS: BP 164/99; PULSE 106; RESP 20; TEMP 36.8; O2SAT 95; BMI 45.3
[2019-11-16] MEDS: SODIUM CHLORIDE 0.9% 1,000 ML 1000 ML IV (21:44)
[2019-11-16] MEDS: KETOROLAC 60 MG/2 ML VIAL 15 MG IV (21:44)
[2019-11-16 21:45] LABS: Add Manual Diff / Slide Review NO; Basophils Absolute Auto 100 /uL (0-100); Basophils Percent Auto 1.2 % (0-2); Eosinophils Absolute Auto 100 /uL (0-450); Eosinophils Percent Auto 0.8 % (2-4); Hematocrit 35.6 % (36-46); Lymphocytes Absolute Auto 2000 /uL (1100-4500); Mean Corpuscular HGB Conc 33.5 % (30-36); Mean Corpuscular Hemoglobin 34.2 PG (26-34); Monocytes Absolute Auto 800 /uL (0-900); Monocytes Percent Auto 9.1 % (3-14); Neutrophils Absolute Auto 5400 /uL (1500-7000); Neutrophils Percent Auto 64.9 % (50-75); Platelet Count 350 X10^3/uL (150-400); Red Blood Cell Count 3.49 X10^6/uL (4.0-5.2); Red Cell Distribution Width 21.6 % (11.6-14.8); White Blood Cell Count 8.3 X10^3/uL (4.5-11.0)
[2019-11-16 22:03] LABS: Anisocytosis 1+
[2019-11-16 22:07] LABS: Alanine Aminotransferase 34 IU/L (<35); Albumin 4.7 g/dL (3.5-5.0); Alkaline Phosphatase 137 U/L (38-126); Aspartate Aminotransferase 35 IU/L (14-36); BUN Creatinine Ratio 10.7 (6-22); Bilirubin Total 0.6 mg/dL (0.2-1.3); Blood Urea Nitrogen 18 mg/dL (7-17); Calcium 10.4 mg/dL (8.4-10.2); Carbon Dioxide 30 mmol/L (22-32); Chloride 97 mmol/L (98-107); Globulin 4.5 g/dL (1.7-4.1); Glucose 148 mg/dL (70-100); HEMOLYSIS < 15 (0-50); Potassium 3.5 mmol/L (3.4-5.1); Sodium 139 mmol/L (137-145); Total Protein 9.2 g/dL (6.3-8.2)
[2019-11-16 22:09] LABS: RBC Urine 30-100/HPF (0-5/HPF); WBC Urine 30-100/HPF (0-5/HPF)
[2019-11-16 22:10] LABS: Bacteria Urine Many (>30); Culture Indicated Urine Specimen Cultured; Squamous Epithelial Cell Urine 1-5 /HPF (0-5/HPF)
--- NOTE | 2019-11-16 22:25 | DI.CT.S_ITS ---
PROCEDURE: CT KIDNEY URETER BLADDER (KUB) INDICATIONS: retained stone with sepsis TECHNIQUE: Noncontrast 5 mm thick sections acquired from the diaphragms to the symphysis. 5 mm thick coronal and sagittal reformats were then performed. For radiation dose reduction, the following was used: automated exposure control, adjustment of mA and/or kV according to patient size. COMPARISON: [facility], CR, XR RETROGRADE UROGRAPHY, 11/17/2019, 3:12. [facility], CT, CT CHEST ABD PEL W CON, 10/30/2019, 15:18. FINDINGS: Image quality: Excellent. Lung bases: Lung bases are clear. Heart size is normal. Tiny hiatal hernia. Urinary system: Both kidneys are normal in size. Obstructing calculus in the proximal right ureter measuring 0.8 cm in diameter, (2/45), similar to CT 10/30/2019. Moderate right hydronephrosis, unchanged. Obstructing calculus in the left ureter at the pelvic brim measuring 0.4 cm, (2/66). This calculus was previously located within the kidney on the prior CT. There is moderate inflammatory change surrounding the mid left ureter. Mild left-sided hydronephrosis. Both ureters appear non-dilated throughout their expected courses. Bladder is mostly decompressed limiting evaluation. There is a punctate calcification in the region of the urethral orifice, (2/84), unchanged. Other solid organs: Liver is normal in size. Hepatic steatosis. Gallbladder is surgically absent. Pancreas is normal in contours. Spleen is normal in size. No adrenal nodules. Peritoneum and bowel: No small bowel obstruction. Mild sigmoid colon diverticulosis. Mild stranding adjacent to the rectosigmoid junction, (4/45), similar to the prior exam. No free fluid or air. Nodes and vessels: No retroperitoneal or mesenteric adenopathy by size criteria. Aorta and inferior vena cava are normal in caliber. Abdominal wall: No significant ventral hernias. Pelvis: No free pelvic fluid. No inguinal hernias or adenopathy. Anteverted uterus. Bones: No suspicious bony lesions. No vertebral body compression fractures. IMPRESSION: 1. New obstructing calculus in the left ureter at the pelvic brim measuring 0.4 cm. Mild left kidney hydronephrosis. 2. Similar obstructing calculus at the proximal right ureter measuring 0.8 cm. Moderate right kidney hydronephrosis. 3. Mild stranding adjacent to the sigmoid colon which is similar to the prior CT and likely represents a subacute diverticulitis. 4. Probable punctate bladder calculus near the urethral orifice, unchanged. Additional findings: Hepatic steatosis. Post cholecystectomy. Diverticulosis. This report is concordant with the overnight preliminary interpretation. Dictated by: Fantasma Mcneil M.D. on 11/17/2019 at 9:00 Approved by: Fantasma Mcneil M.D. on 11/17/2019 at 9:14
[2019-11-16] MEDS: levoFLOXacin 500 MG/100 ML PIGGYBACK 100 MG IV (22:29)
[2019-11-16 23:02] VITALS: PULSE 99; O2SAT 91
[2019-11-16 23:30] VITALS: PULSE 105; O2SAT 95
[2019-11-16 23:57] VITALS: BP 131/74; PULSE 104; O2SAT 97
[2019-11-17] VITALS: PULSE 102; O2SAT 95
[2019-11-17 00:19] LABS: COVID19 -Nasal RAPID Negative (Negative)
[2019-11-17 00:34] VITALS: BP 167/79; O2SAT 97
== END 2019-11-17 02:25 | disposition short-term general hospital (02) ==
PROVIDERS: Emergency Provider Emergency Medicine; PCP Student in an Organized Health Care Education/Training Program
DX: N13.9 Obstructive and reflux uropathy, unspecified (principal); N17.9 Acute kidney failure, unspecified; N39.0 Urinary tract infection, site not specified; C50.919 Malignant neoplasm of unspecified site of unspecified female breast; R11.0 Nausea; I10 Essential (primary) hypertension; E78.5 Hyperlipidemia, unspecified; E11.9 Type 2 diabetes mellitus without complications; R39.15 Urgency of urination
CPT/HCPCS: 36415; 74176; 80053; 81003; 81015; 85025; 87077; 87086; 87186; 87635; 96361; 96365; 96375; 99284; 99291; J1885; J1956

== ENCOUNTER → 2020-02-16 12:31 | Outpatient (CLI) | payer OTHER, SELFPAY ==
--- NOTE | 2020-02-16 12:33 | DI.US.S_ITS ---
PROCEDURE: US RENAL COMPLETE INDICATIONS: HISTORY OF URETER CALCULUS BILATERALLY TECHNIQUE: Real-time scanning was performed of the kidneys and bladder, with image documentation. COMPARISON: [facility], CT, CT KIDNEY URETER BLADDER (KUB), 11/16/2019, 22:28. [facility], CR, XR RETROGRADE UROGRAPHY, 12/19/2019, 10:37. FINDINGS: Technically limited exam. Kidneys: Kidneys are normal in size. Right kidney measures 10.3 cm long; left kidney measures 9 cm long. Right renal cortical thickness is 1.3 cm; left renal cortical thickness is 1.1 cm. Renal cortical echotexture is normal. No hydronephrosis. No obvious solid mass lesions. Bladder: Pre-void bladder volume is 154 mL. Post-void residual is 0 mL. Pre-void images demonstrate no intraluminal masses or stones. Left ureteral jet is seen. Right ureteral jet is not seen. Miscellaneous: No free pelvic fluid. IMPRESSION: Limited exam due to acoustic windows and body habitus. 1. No hydronephrosis. 2. No obvious kidney stones. 3. No postvoid residual. Dictated by: Fantasma Mcneil M.D. on 02/16/2020 at 14:06 Approved by: Fantasma Mcneil M.D. on 02/16/2020 at 14:15
== END ==
PROVIDERS: PCP Student in an Organized Health Care Education/Training Program; Referring Provider Urology; Visit Provider Urology
DX: N20.1 Calculus of ureter (principal)
CPT/HCPCS: 76770

== ENCOUNTER 2020-05-10 20:04 | Observation (INO) | payer OTHER, SELFPAY ==
[2020-05-10] VITALS (10 sets, daily range): BP systolic 128–148; BP diastolic 61–66; PULSE 92–114; RESP 12–24; TEMP 36.3; O2SAT 98–100
[2020-05-10] MEDS: SODIUM CHLORIDE 0.9% 1,000 ML 1000 ML IV (20:28)
[2020-05-10 20:30] LABS: Add Manual Diff / Slide Review NO; Basophils Absolute Auto 0 /uL (0-100); Basophils Percent Auto 0.6 % (0-2); Eosinophils Absolute Auto 0 /uL (0-450); Eosinophils Percent Auto 0.2 % (2-4); Hemoglobin 11.9 g/dL (12.0-16.0); Lymphocytes Absolute Auto 1100 /uL (1100-4500); Lymphocytes Percent Auto 17.4 % (25-40); Mean Corpuscular Hemoglobin 36.2 PG (26-34); Mean Corpuscular Volume 106.6 fL (80-100); Monocytes Absolute Auto 200 /uL (0-900); Monocytes Percent Auto 3.6 % (3-14); Neutrophils Absolute Auto 4900 /uL (1500-7000); Neutrophils Percent Auto 78.2 % (50-75); Platelet Count 329 X10^3/uL (150-400); Red Blood Cell Count 3.28 X10^6/uL (4.0-5.2); White Blood Cell Count 6.3 X10^3/uL (4.5-11.0)
--- NOTE | 2020-05-10 20:30 | PC.NURSE ---
Of note, pt is on oral chemotherapy for metatstatic breast cancer.
[2020-05-10 20:40] LABS: Prothrombin Time 10.9 SECONDS (10.1-12.7)
[2020-05-10 20:43] LABS: PTT Partial Thromboplastin Tim 31 SECONDS (26.4-36.2)
[2020-05-10 20:45] LABS: Alanine Aminotransferase 15 IU/L (<35); Albumin 4.4 g/dL (3.5-5.0); Albumin Globulin Ratio 1.2 (1.0-2.8); Alkaline Phosphatase 92 U/L (38-126); Aspartate Aminotransferase 22 IU/L (14-36); Bilirubin Total 0.4 mg/dL (0.2-1.3); Blood Urea Nitrogen 20 mg/dL (7-17); Calcium 10.3 mg/dL (8.4-10.2); Carbon Dioxide 27 mmol/L (22-32); Chloride 99 mmol/L (98-107); Estimated Glomerular Filt Rate > 60.0 mL/min (>60); Globulin 3.7 g/dL (1.7-4.1); Glucose 146 mg/dL (70-100); HEMOLYSIS < 15 (0-50); Lipase 89 U/L (23-300); Potassium 3.5 mmol/L (3.4-5.1); Sodium 136 mmol/L (137-145); Total Protein 8.1 g/dL (6.3-8.2)
--- NOTE | 2020-05-10 20:45 | ED.SKABFB ---
HPI - Skin/Abscess/Foreign Bdy General Chief complaint: Skin/Abscess/Foreign Body Stated complaint: WARM AND RED SWELLING OF RIGHT ARM Time Seen by Provider: 05/10/20 20:27 Source: patient Mode of arrival: Ambulatory Limitations: no limitations History of Present Illness HPI narrative: 59-year-old female nonsmoker with history of breast cancer with metastasis to lungs, takes oral chemotherapy, type 2 diabetes, hypertension, hyperlipidemia and prior episodes of cellulitis presents with a chief complaint of 24 hours of left upper extremity pain, redness, warmth in the absence of injury. She states that she was in her normal state of health until yesterday. She denies any fever but has had some chills. She does have some pain that extends almost to her shoulder. She denies any numbness or tingling of her fingers. She denies chest pain or shortness of breath. She is not dizzy nor weak or lightheaded. She denies recent travel, history of blood clot or use of anticoagulant MD complaint: discoloration Onset (ago): hour(s) Tetanus up to date: yes Location: LUE Severity: moderate Quality: aching Pain Consistency: constant Relieving factors: rest Exacerbating factors: movement Associated symptoms: chills Treatments prior to arrival: none Related Data Home Medications Medication Instructions Recorded Confirmed venlafaxine [Effexor XR] 150 mg PO QDAY #0 12/07/16 05/11/20 atorvastatin [Lipitor] 40 mg PO DAILY 11/02/17 05/11/20 hydrochlorothiazide 25 mg PO DAILY 11/02/17 05/11/20 losartan 50 mg DAILY 07/21/19 05/11/20 metformin 2,000 mg PO DAILY 07/21/19 05/11/20 Previous Rx's Medication Instructions Recorded letrozole [Femara] 2.5 mg PO DAILY #90 tab 11/03/19 palbociclib [Ibrance] 125 mg PO DAILY #63 cap 11/03/19 Allergies Allergy/AdvReac Type Severity Reaction Status Date / Time cephalexin [CEPHALEXIN] Allergy Mild Vomiting Verified 05/10/20 20:11 Review of Systems Constitutional Constitutional: Denies chills, Denies fatigue, Denies fever(s), Denies frequent falls, Denies lethargy and Denies weakness Eyes Eyes: Denies change in vision, Denies eye discharge, Denies irritation and Denies loss of vision ENT Ears, Nose, Mouth, and Throat: Denies change in voice, Denies dizziness, Denies neck pain, Denies sore throat and Denies throat swelling Cardiovascular Cardiovascular: Denies chest pain, Denies irregular heart rhythm, Denies lightheadedness, Denies palpitations, Denies dyspnea, Denies dyspnea on exertion and Denies orthopnea Respiratory Respiratory: Denies cough, Denies dyspnea, Denies dyspnea on exertion and Denies wheezing Gastrointestinal Gastrointestinal: Denies abdominal pain, Denies change in bowel habits, Denies diarrhea, Denies nausea and Denies vomiting Musculoskeletal Musculoskeletal: Denies neck pain and Denies numbness Integumentary/Breasts Skin/Breast: Denies pruritus, Reports erythema, Denies rash, Reports skin pain, Reports skin swelling and Denies wounds Neurologic Neurologic: Denies behavioral changes, Denies confusion, Denies dizziness, Denies frequent falls, Denies loss of vision, Denies numbness and Denies weakness Psychiatric Psychiatric: Denies anxiety, Denies behavioral changes, Denies confusion, Denies depression, Denies homicidal ideation and Denies suicidal ideation Endocrine Endocrine: Denies fatigue, Denies flushing and Denies palpitations Hematologic/Lymphatic Hematologic/Lymphatic: Denies easy bruising Allergic/Immunologic Allergic/Immunologic: Denies urticaria, Denies throat swelling and Denies wheezing Patient History Medical History Arthritis Breast cancer, left breast Depression Diabetes Edema HTN (hypertension) Hyperlipidemia Insomnia Lateral epicondylitis Osteopenia Sleep apnea with use of continuous positive airway pressure (CPAP) Surgical History History of ankle surgery Hx of cholecystectomy Hx of shoulder surgery S/P lumpectomy, left breast Social History household members: spouse Smoking Status: Never smoker alcohol intake: current substance use type: does not use Smoking Status: Never smoker alcohol intake frequency: 0-2 drinks per day Substance Use Type: does not use Exam Narrative Exam Narrative: GENERAL: [59] year old patient appears stated age. Well-nourished, well-developed patient, in mild distress. HEAD: Atraumatic. Normocephalic. EYES: Pupils equal round and reactive. Extraocular motions intact. No scleral icterus. No injection or drainage. ENT: Nose without bleeding, purulent drainage. Throat without erythema, tonsillar hypertrophy or exudate. Airway patent. NECK: Trachea midline. Non tender CARDIOVASCULAR: Tachycardic and regular rhythm without murmurs, gallops, or rubs. RESPIRATORY: Clear to auscultation. Breath sounds equal bilaterally. No wheezes, rales, or rhonchi. GASTROINTESTINAL: Abdomen soft, non-tender, nondistended. EXTREMITIES: No edema or joint tenderness. BACK: Nontender without deformity or crepitance. No flank tenderness. NEURO: AOx3. SKIN: Left upper extremity with swelling, notable erythema of forearm, circumferential, warm to the touch relatively well demarcated, no lymphangitis, no obvious break in the skin. Initial Vital Signs Initial Vital Signs: Vital Signs Temperature 97.4 F L 05/10/20 20:09 Pulse Rate 114 H 05/10/20 20:09 Respiratory Rate 16 05/10/20 20:09 Blood Pressure 136/61 05/10/20 20:09 Pulse Oximetry 99 05/10/20 20:09 Course Orders Ordered: ED Orders 05/10/20 20:20 Complete Blood Count AUTO DIFF Stat Comprehensive Metabolic Panel Stat Lactate (Lactic Acid) Stat Lipase Stat Partial Thromboplastin Time Stat Procalcitonin Stat Prothrombin Time INR Stat 05/10/20 20:38 Blood Culture Stat 05/10/20 20:52 periph venous up extrem lt Stat 05/10/20 21:43 COVID19 - ADMIT (EMBEDDED CASE MANAGER swab/PCR) Stat 05/10/20 22:35 Urine Culture Stat Urine Microscopic Stat Acetaminophen (Acetaminophen 325 Mg Tablet) 650 mg PO Q6HR PRN PRN Reason: Fever/Mild Pain (1-3) Dextrose (Dextrose 50 % In Water 25 Gm/50 Ml Syringe) 25 gm IV PRN PRN PRN Reason: Hypoglycemia Docusate Sodium (Docusate 100 Mg Capsule) 100 mg PO BID JENNIFER Hydromorphone HCl (Hydromorphone 0.5 Mg Inj) 0.5 mg IV Q6H PRN PRN Reason: Pain, Moderate (4-6) Lactated Ringer's (Lactated Ringers) 1,000 mls @ 100 mls/hr IV CONT JENNIFER Last Admin: 05/11/20 01:18 Dose: 100 mls/hr Documented by: LOYDA Ibuprofen (Ibuprofen 600 Mg Tablet) 600 mg PO Q6HR PRN PRN Reason: Fever/Mild Pain (1-3) Insulin Aspart (Insulin Aspart 100 Unit/Ml Insuln Pen) 0 unit SUBCUT ACHS JENNIFER; Protocol Naloxone HCl (Naloxone 0.4 Mg/Ml Vial) 0.2 mg IV Q2MIN PRN PRN Reason: Opiate Reversal Ondansetron HCl (Ondansetron 4 Mg Odt) 4 mg PO Q8HR PRN PRN Reason: Nausea And Vomiting Pantoprazole Sodium (Pantoprazole 20 Mg Tablet) 20 mg PO 0600 JENNIFER Sennosides (Sennosides 8.6 Mg Tablet) 17.2 mg PO BEDTIME JENNIFER Discontinued Medications Apixaban (Apixaban 5 Mg Tablet) 5 mg PO NOW ONE Stop: 05/10/20 22:53 Last Admin: 05/10/20 23:10 Dose: 5 mg Documented by: SUELLEN Sodium Chloride (Normal Saline 0.9%) 1,000 mls @ 1,000 mls/hr IV BOLUS ONE Stop: 05/10/20 21:21 Last Infusion: 05/10/20 22:17 Dose: 0 mls/hr Documented by: Admin: 05/10/20 20:28 Dose: 1,000 mls/hr Documented by: VIVIAN Sodium Chloride (Normal Saline 0.9%) 1,779 mls @ 593 mls/hr 30 ml/kg infuse over 3 hr (1779 ml) IV NOW ONE Stop: 05/10/20 23:58 Last Infusion: 05/11/20 00:30 Dose: 593 mls/hr Documented by: Admin: 05/10/20 22:17 Dose: 593 mls/hr Documented by: SUELLEN Ampicillin Sodium/Sulbactam (Sodium 3 gm/ Sodium Chloride) 100 mls @ 100 mls/hr IV NOW ONE Stop: 05/10/20 21:05 Last Infusion: 05/10/20 22:17 Dose: 0 mls/hr Documented by: Admin: 05/10/20 21:13 Dose: 100 mls/hr Documented by: SUELLEN Vital Signs Vital signs: Vital Signs - 8 hr 05/10/20 20:09 05/10/20 21:20 05/10/20 21:30 Temperature 97.4 F L Pulse Rate 114 H 104 H 100 H Respiratory Rate 16 18 18 Blood Pressure 136/61 131/64 128/61 Pulse Oximetry 99 98 99 05/10/20 22:00 05/10/20 22:03 05/10/20 22:30 Temperature Pulse Rate 97 H 97 H 98 H Respiratory Rate 12 14 24 Blood Pressure 135/65 142/65 H Pulse Oximetry 100 100 100 05/10/20 23:00 05/10/20 23:01 05/10/20 23:30 Temperature Pulse Rate 92 H 93 H 92 H Respiratory Rate 16 20 15 Blood Pressure 140/66 Pulse Oximetry 100 99 100 05/10/20 23:31 Temperature Pulse Rate 94 H Respiratory Rate 17 Blood Pressure 148/62 H Pulse Oximetry 100 MDM - Skin/Abscess/Foreign Bdy Lab Data Result diagrams: 05/10/20 20:20 05/10/20 20:20 Labs: Lab Results 05/10/20 05/10/20 05/10/20 Range/Units 20:20 20:20 20:20 WBC 6.3 (4.5-11.0) X10^3/uL RBC 3.28 L (4.0-5.2) X10^6/uL Hgb 11.9 L (12.0-16.0) g/dL Hct 35.0 L (36-46) % MCV 106.6 H (80-100) fL MCH 36.2 H (26-34) PG MCHC 34.0 (30-36) % RDW 16.0 H (11.6-14.8) % Plt Count 329 (150-400) X10^3/uL Neut % (Auto) 78.2 H (50-75) % Lymph % (Auto) 17.4 L (25-40) % [place] % (Auto) 3.6 (3-14) % Eos % (Auto) 0.2 L (2-4) % Baso % (Auto) 0.6 (0-2) % Neut # (Auto) 4900 (3965-6179) /uL Lymph # (Auto) 1100 (8939-7793) /uL [place] # (Auto) 200 (0-900) /uL Eos # (Auto) 0 (0-450) /uL Baso # (Auto) 0 (0-100) /uL PT 10.9 (10.1-12.7) SECONDS INR 1.0 (0.9-1.3) APTT 31 (26.4-36.2) SECONDS Sodium 136 L (137-145) mmol/L Potassium 3.5 (3.4-5.1) mmol/L Chloride 99 (98-107) mmol/L Carbon Dioxide 27 (22-32) mmol/L BUN 20 H (7-17) mg/dL Creatinine 0.91 (0.52-1.04) mg/dL Estimated GFR > 60.0 (>60) mL/min BUN/Creatinine Ratio 22.0 (6-22) Glucose 146 H (70-100) mg/dL Hemoglobin A1c (4.0-6.0) % Lactate (0.7-2.1) mmol/L Calcium 10.3 H (8.4-10.2) mg/dL Total Bilirubin 0.4 (0.2-1.3) mg/dL AST 22 (14-36) IU/L ALT 15 (<35) IU/L Alkaline Phosphatase 92 (38-126) U/L Total Protein 8.1 (6.3-8.2) g/dL Albumin 4.4 (3.5-5.0) g/dL Globulin 3.7 (1.7-4.1) g/dL Albumin/Globulin Ratio 1.2 (1.0-2.8) Lipase 89 (23-300) U/L Procalcitonin 0.05 (<0.5) ng/mL Urine RBC (0-5/HPF) Urine WBC (0-5/HPF) Ur Squamous Epith Cells (0-5/HPF) Urine Bacteria (None) Ur Culture Indicated? SARS-CoV-2 (PCR) (Negative) 05/10/20 05/10/20 05/10/20 Range/Units 20:20 20:20 21:43 WBC (4.5-11.0) X10^3/uL RBC (4.0-5.2) X10^6/uL Hgb (12.0-16.0) g/dL Hct (36-46) % MCV (80-100) fL MCH (26-34) PG MCHC (30-36) % RDW (11.6-14.8) % Plt Count (150-400) X10^3/uL Neut % (Auto) (50-75) % Lymph % (Auto) (25-40) % [place] % (Auto) (3-14) % Eos % (Auto) (2-4) % Baso % (Auto) (0-2) % Neut # (Auto) (8382-2021) /uL Lymph # (Auto) (9879-4487) /uL [place] # (Auto) (0-900) /uL Eos # (Auto) (0-450) /uL Baso # (Auto) (0-100) /uL PT (10.1-12.7) SECONDS INR (0.9-1.3) APTT (26.4-36.2) SECONDS Sodium (137-145) mmol/L Potassium (3.4-5.1) mmol/L Chloride (98-107) mmol/L Carbon Dioxide (22-32) mmol/L BUN (7-17) mg/dL Creatinine (0.52-1.04) mg/dL Estimated GFR (>60) mL/min BUN/Creatinine Ratio (6-22) Glucose (70-100) mg/dL Hemoglobin A1c 6.4 H (4.0-6.0) % Lactate 3.0 H (0.7-2.1) mmol/L Calcium (8.4-10.2) mg/dL Total Bilirubin (0.2-1.3) mg/dL AST (14-36) IU/L ALT (<35) IU/L Alkaline Phosphatase (38-126) U/L Total Protein (6.3-8.2) g/dL Albumin (3.5-5.0) g/dL Globulin (1.7-4.1) g/dL Albumin/Globulin Ratio (1.0-2.8) Lipase (23-300) U/L Procalcitonin (<0.5) ng/mL Urine RBC (0-5/HPF) Urine WBC (0-5/HPF) Ur Squamous Epith Cells (0-5/HPF) Urine Bacteria (None) Ur Culture Indicated? SARS-CoV-2 (PCR) Negative (Negative) 05/10/20 05/10/20 Range/Units 22:35 22:45 WBC (4.5-11.0) X10^3/uL RBC (4.0-5.2) X10^6/uL Hgb (12.0-16.0) g/dL Hct (36-46) % MCV (80-100) fL MCH (26-34) PG MCHC (30-36) % RDW (11.6-14.8) % Plt Count (150-400) X10^3/uL Neut % (Auto) (50-75) % Lymph % (Auto) (25-40) % [place] % (Auto) (3-14) % Eos % (Auto) (2-4) % Baso % (Auto) (0-2) % Neut # (Auto) (9221-1093) /uL Lymph # (Auto) (8198-7196) /uL [place] # (Auto) (0-900) /uL Eos # (Auto) (0-450) /uL Baso # (Auto) (0-100) /uL PT (10.1-12.7) SECONDS INR (0.9-1.3) APTT (26.4-36.2) SECONDS Sodium (137-145) mmol/L Potassium (3.4-5.1) mmol/L Chloride (98-107) mmol/L Carbon Dioxide (22-32) mmol/L BUN (7-17) mg/dL Creatinine (0.52-1.04) mg/dL Estimated GFR (>60) mL/min BUN/Creatinine Ratio (6-22) Glucose (70-100) mg/dL Hemoglobin A1c (4.0-6.0) % Lactate 2.2 H (0.7-2.1) mmol/L Calcium (8.4-10.2) mg/dL Total Bilirubin (0.2-1.3) mg/dL AST (14-36) IU/L ALT (<35) IU/L Alkaline Phosphatase (38-126) U/L Total Protein (6.3-8.2) g/dL Albumin (3.5-5.0) g/dL Globulin (1.7-4.1) g/dL Albumin/Globulin Ratio (1.0-2.8) Lipase (23-300) U/L Procalcitonin (<0.5) ng/mL Urine RBC None seen (0-5/HPF) Urine WBC 0-1/hpf (0-5/HPF) Ur Squamous Epith Cells 0-1 /hpf (0-5/HPF) Urine Bacteria None seen (None) Ur Culture Indicated? Specimen cultured SARS-CoV-2 (PCR) (Negative) Urine Dip Bedside Urine Glucose Negative Bedside Urine Bilirubin - Negative Bedside Urine Ketone - Negative Urine Specific [place] 1.015 Bedside Urine Occult Blood - Negative Bedside Urine pH 6.0 Bedside Urine Protein - Negative Bedside Urine Urobilinogen - Negative Bedside Urine Nitrite - Negative Bedside Urine Leukocytes + 70 Esterase MDM Narrative Medical decision making narrative: 59-year-old female with lung cancer, breast cancer on chemotherapy presents with left upper extremity pain, swelling and redness in absence of injury. She was treated like a sepsis patient with use of blood cultures, early broad spectrum ABX, and fluids at 30mL/kg. She does not actually meet sepsis criteria. Given risk a DVT study was ordered and demonstrates DVT of uncertain duration. Lactate repeated after fluids and ABX and improved, but remained elevated at 2.2. Though it would seem unlikely to have both a new DVT and cellulitis the inital tachycardia, elevated lactate, chills, and immunocompromise suggest we continue to treat. Given presence of DVT and initial tachycardia a PE was considered, but thought unlikley given lack of chest pain, shortness of breath, hypoxemia. Discharge Plan Departure Patient Disposition: Admitted as Observation Admit Date/Time: 05/10/20 23:48 Admit Provider: Zulma Padilla
--- NOTE | 2020-05-10 20:52 | DI.US.S_ITS ---
PROCEDURE: US PERIPH VENOUS UP EXTREM LT INDICATIONS: PAIN, SWELLING, REDNESS, NO INJURY, CANCER TECHNIQUE: Real-time imaging, as well as color and pulse Doppler interrogation, was performed of the left upper extremity deep veins from the inferior neck to the antecubital fossa. COMPARISON: None. FINDINGS: The internal jugular vein, visualized portions of the subclavian vein, and axillary veins are free of intraluminal thrombus. Paired brachial veins are small and demonstrate no detectable venous flow. The medial vein is noncompressible. The lateral vein demonstrates partial compression. Additional scanning of the cephalic and basilic veins of the superficial system demonstrate normal compressibility, without thrombus. IMPRESSION: 1. Deep venous thrombus in the paired brachial veins the left upper extremity. Given their diminutive size, chronicity of this finding is uncertain. 2. Superficial venous system is widely patent. Dictated by: Pamela Laureano M.D. on 05/10/2020 at 22:28 Approved by: Pamela Laureano M.D. on 05/10/2020 at 22:32
[2020-05-10 21:02] LABS: Procalcitonin 0.05 ng/mL (<0.5)
[2020-05-10] MEDS: AMPICILLIN/SULBACTAM 3 GM 3 GM in SODIUM CHLORIDE 0.9% 100 ML IV (21:13)
[2020-05-10] MEDS: SODIUM CHLORIDE 0.9% 1,779 ML 593 ML IV (22:17)
[2020-05-10 22:28] LABS: Reflexed Lactate in 2 Hours Y
[2020-05-10 22:35] LABS: COVID19 - ADMIT (NP swab/PCR) Negative (Negative)
[2020-05-10 22:43] LABS: Bacteria Urine None Seen; RBC Urine None Seen (0-5/HPF)
[2020-05-10 22:55] LABS: Culture Indicated Urine Specimen Cultured; Squamous Epithelial Cell Urine 0-1 /HPF (0-5/HPF); WBC Urine 0-1/HPF (0-5/HPF)
[2020-05-10 23:06] LABS: Lactate 2HR (Lactic Acid Rflx) 2.2 mmol/L (0.7-2.1)
[2020-05-10] MEDS: APIXABAN 5 MG TABLET PO (23:10)
[2020-05-11] VITALS (11 sets, daily range): BP systolic 107–146; BP diastolic 55–89; PULSE 91–106; RESP 12–18; TEMP 36.6–36.9; O2SAT 97–100; BMI 44.8
[2020-05-11 00:40] LABS: Hemoglobin A1C% w Est Avg Glu 6.4 % (4.0-6.0)
[2020-05-11] MEDS: LACTATED RINGERS 1,000 ML 100 ML IV (01:18)
--- NOTE | 2020-05-11 01:40 | PC.ADMIT ---
[address] Admission Note:Pt arrived to unit without issues. SBA to bed and restroom. Pt denies any pain. R arm slightly edematous and red. Pt voiding to without issues. Uses CPAP at night, RT set up. No complaints at this time The patient,Alvina Cast,59 y/o, was given written information regarding hospital policies, unit procedures and contact persons. Patient's smoking status: Never smoker. Vital Signs - 8 hr 05/10/20 20:09 05/10/20 21:20 05/10/20 21:30 Temperature 97.4 F L Pulse Rate 114 H 104 H 100 H Respiratory Rate 16 18 18 Blood Pressure 136/61 131/64 128/61 Pulse Oximetry 99 98 99 05/10/20 22:00 05/10/20 22:03 05/10/20 22:30 Temperature Pulse Rate 97 H 97 H 98 H Respiratory Rate 12 14 24 Blood Pressure 135/65 142/65 H Pulse Oximetry 100 100 100 05/10/20 23:00 05/10/20 23:01 05/10/20 23:30 Temperature Pulse Rate 92 H 93 H 92 H Respiratory Rate 16 20 15 Blood Pressure 140/66 Pulse Oximetry 100 99 100 05/10/20 23:31 05/11/20 00:00 05/11/20 00:50 Temperature 97.9 F Pulse Rate 94 H 91 H 99 H Respiratory Rate 17 16 18 Blood Pressure 148/62 H 146/65 H 130/89 Pulse Oximetry 100 100 98 05/11/20 01:07 Temperature Pulse Rate Respiratory Rate Blood Pressure Pulse Oximetry 98
--- NOTE | 2020-05-11 03:07 | P.HP_ITS ---
History of Present Illness History of Present Illness Date Patient Seen: 05/11/20 Time Patient Seen: 00:21 Chief complaint: WARM AND RED SWELLING OF RIGHT ARM Narrative: Patient is a 59-year-old female Alvina Cast with a chief complaint of 24 hours of left upper extremity pain, redness, warmth in the absence of injury. Patient is a nonsmoker with history of breast cancer with metastasis to lungs, takes oral chemotherapy, type 2 diabetes, hypertension, hyperlipidemia and prior episodes of cellulitis. She states that she was in her normal state of health until yesterday. She denies any fever but has had some chills. She does have some pain that extends almost to her shoulder. She denies any numbness or tingling of her fingers. She denies chest pain or shortness of breath. She is not dizzy nor weak or lightheaded. She denies recent travel, history of blood clot or use of anticoagulant. Upon admit patient states that she feels that the erythema is increasing up the arm since being in the emergency room. She denies any pain or discomfort chest pain shortness of breath fever body aches chills nausea vomiting diarrhea. She states only that the the left arm feels heavy. She also states that she has had cellulitis multiple times in the past but it has never been this bad. Patient's vitals upon admit temp 97.4?, BP 135/65, HR 97, RR 12, O2 saturation 100% on room air. Patient's labs HGB 11.9, HCT 35, Na 136, BUN 20, glucose 146, calcium 10.3, lactate 1. 3.0, 2. 2.2, lipase WNL, procalcitonin 0.05 WN male, UA culture pending. Vascular ultrasound:Deep venous thrombus in the paired brachial veins the left upper extremity. Given their diminutive size, chronicity of this finding is uncertain. Superficial venous system is widely patent. Oncology note Dr. 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 Path stage pT1b pN1. She underwent adjuvant chemotherapy with AC x4 completed 07/11/2007 followed by 37 fractions of adjuvant radiation therapy. He did not receive any endocrine therapy due to in ability to tolerate. In [id number], she presented with dry cough. CT chest showed multiple pulmonary nodules in 03/26/2019. She was diagnosed with metastatic ER+, MN+, HER2- breast cancer after robotic assisted thoracic surgery with diagnostic wedge resections of the right upper lobe and middle lobe on 07/02/2019. PET scan in 05/23/2019 showed no metastatic disease below the diaphragm and no osseous metastatic disease. Since 07/21/2019, patient was started first on letrozole 2.5 mg once daily. She started Ibrance 08/10/2019. CT chest abdomen pelvis which was done on 10/30/2019. The scan showed overall interval decrease in the small pulmonary nodules bilaterally, interval decrease in the left subclavicular lymph nodes, and no new or enlarging sites of disease. Once again it showed an obstructing calculus in the proximal right ureter with moderate hydronephrosis which was unchanged since May 2019. Patient History Medical History Arthritis Breast cancer, left breast Depression Diabetes Edema HTN (hypertension) Hyperlipidemia Insomnia Lateral epicondylitis Osteopenia Sleep apnea with use of continuous positive airway pressure (CPAP) Surgical History History of ankle surgery Hx of cholecystectomy Hx of shoulder surgery S/P lumpectomy, left breast Family & Social History Family History (Updated 05/11/20 @ 06:56 by PAULINE Castro) Mother Diabetes mellitus Heart attack Father Coronary bypass graft mechanical complication Hypertension Social History: household members spouse, patient no longer works due to disability issues Prior Living Arrangements House Safety & Behavioral: Feels Safe in Current Yes Environment Been Physically Hurt or No Threatened By a Person Suicidal Ideation Description None Suicide Plan Description No Plan Tobacco & Substance use: Smoking Status Never smoker alcohol intake current alcohol intake frequency 0-2 drinks per day Substance Use Type CBD the tincture or edibles Meds Home Medications and Allergies Home Medications Medication Instructions Recorded Confirmed Type venlafaxine [Effexor XR] 150 mg PO QDAY #0 12/07/16 05/11/20 History atorvastatin [Lipitor] 40 mg PO DAILY 11/02/17 05/11/20 History hydrochlorothiazide 25 mg PO DAILY 11/02/17 05/11/20 History losartan 50 mg DAILY 07/21/19 05/11/20 History metformin 2,000 mg PO DAILY 07/21/19 05/11/20 History letrozole [Femara] 2.5 mg PO DAILY #90 tab 11/03/19 05/11/20 Rx palbociclib [Ibrance] 125 mg PO DAILY #63 cap 11/03/19 05/11/20 Rx Allergies Allergy/AdvReac Type Severity Reaction Status Date / Time cephalexin [CEPHALEXIN] Allergy Mild Vomiting Verified 05/10/20 20:11 Review of Systems Review of Systems ROS: Yes All systems reviewed with the patient and are negative except as otherwise documented Exam Vital Signs (past 8 hours): - 05/10/20 20:09 05/10/20 21:20 05/10/20 21:30 Temperature 97.4 F L Pulse Rate 114 H 104 H 100 H Respiratory Rate 16 18 18 Blood Pressure 136/61 131/64 128/61 Pulse Oximetry 99 98 99 05/10/20 22:00 05/10/20 22:03 05/10/20 22:30 Temperature Pulse Rate 97 H 97 H 98 H Respiratory Rate 12 14 24 Blood Pressure 135/65 142/65 H Pulse Oximetry 100 100 100 05/10/20 23:00 05/10/20 23:01 05/10/20 23:30 Temperature Pulse Rate 92 H 93 H 92 H Respiratory Rate 16 20 15 Blood Pressure 140/66 Pulse Oximetry 100 99 100 05/10/20 23:31 05/11/20 00:00 05/11/20 00:50 Temperature 97.9 F Pulse Rate 94 H 91 H 99 H Respiratory Rate 17 16 18 Blood Pressure 148/62 H 146/65 H 130/89 Pulse Oximetry 100 100 98 05/11/20 01:07 Temperature Pulse Rate Respiratory Rate Blood Pressure Pulse Oximetry 98 Oxygen Delivery Method Room Air Oxygen Flow Rate 0 Narrative Exam Narrative: General: Patient is a well-developed, well-nourished in no distress at this time. HEENT: Normocephalic, atraumatic, extraocular muscles intact, oral pharynx is clear and mucous membranes are moist. Neck is supple and symmetric, trachea is midline, no adenopathy, no thyroid enlargement, nontender, no masses palpated. Negative for JVD Chest: Normal AP diameter and contour without kyphoscoliosis, no nasal flaring, retractions, or tachypneic labored Lungs: Auscultation of all lung perez are clear without adventitious sounds, wheezes, rhonchi, or rales. Cardio: S1 & S2 with regular rate and rhythm without murmur, rubs, or gallops, no carotid bruit, no cardiac pulsations present. Abdomen: Soft nontender, negative for organomegaly, or masses. Bowel sounds are present in all 4 quadrants without guarding or rebound, no CVA tenderness. Musculoskeletal: Muscle strength and tone are equal within normal limits, no deformity, crepitus, effusions, cyanosis, clubbing or edema present with the exception of the left arm. Full range of motion intact radial and pedal pulses are normal. Skin: Patient's left forearm is grossly erythemic with inflammation just above the left AC, warm to touch patient has full range of motion radial and brachial pulse intact. Neuro: Alert and orientated x3, strength is +5/5 in all extremities, sensation to touch intact, no gross deficits noted of cranial nerves. Psych: Patient has a well-kept appearance, appropriate affect, mental status attitude thought context and judgment are appropriate for age. Objective Labs Result Diagrams: 05/11/20 05:35 05/11/20 05:35 Labs: Laboratory Results - last 24 hr 05/10/20 05/10/20 05/10/20 20:20 20:20 20:20 WBC 6.3 RBC 3.28 L Hgb 11.9 L Hct 35.0 L MCV 106.6 H MCH 36.2 H MCHC 34.0 RDW 16.0 H Plt Count 329 Neut % (Auto) 78.2 H Lymph % (Auto) 17.4 L [place] % (Auto) 3.6 Eos % (Auto) 0.2 L Baso % (Auto) 0.6 Neut # (Auto) 4900 Lymph # (Auto) 1100 [place] # (Auto) 200 Eos # (Auto) 0 Baso # (Auto) 0 PT 10.9 INR 1.0 APTT 31 Sodium 136 L Potassium 3.5 Chloride 99 Carbon Dioxide 27 BUN 20 H Creatinine 0.91 Estimated GFR > 60.0 BUN/Creatinine Ratio 22.0 Glucose 146 H Hemoglobin A1c Lactate Calcium 10.3 H Total Bilirubin 0.4 AST 22 ALT 15 Alkaline Phosphatase 92 Total Protein 8.1 Albumin 4.4 Globulin 3.7 Albumin/Globulin Ratio 1.2 Lipase 89 Procalcitonin 0.05 Urine RBC Urine WBC Ur Squamous Epith Cells Urine Bacteria Ur Culture Indicated? SARS-CoV-2 (PCR) 05/10/20 05/10/20 05/10/20 20:20 20:20 21:43 WBC RBC Hgb Hct MCV MCH MCHC RDW Plt Count Neut % (Auto) Lymph % (Auto) [place] % (Auto) Eos % (Auto) Baso % (Auto) Neut # (Auto) Lymph # (Auto) [place] # (Auto) Eos # (Auto) Baso # (Auto) PT INR APTT Sodium Potassium Chloride Carbon Dioxide BUN Creatinine Estimated GFR BUN/Creatinine Ratio Glucose Hemoglobin A1c 6.4 H Lactate 3.0 H Calcium Total Bilirubin AST ALT Alkaline Phosphatase Total Protein Albumin Globulin Albumin/Globulin Ratio Lipase Procalcitonin Urine RBC Urine WBC Ur Squamous Epith Cells Urine Bacteria Ur Culture Indicated? SARS-CoV-2 (PCR) Negative 05/10/20 05/10/20 22:35 22:45 WBC RBC Hgb Hct MCV MCH MCHC RDW Plt Count Neut % (Auto) Lymph % (Auto) [place] % (Auto) Eos % (Auto) Baso % (Auto) Neut # (Auto) Lymph # (Auto) [place] # (Auto) Eos # (Auto) Baso # (Auto) PT INR APTT Sodium Potassium Chloride Carbon Dioxide BUN Creatinine Estimated GFR BUN/Creatinine Ratio Glucose Hemoglobin A1c Lactate 2.2 H Calcium Total Bilirubin AST ALT Alkaline Phosphatase Total Protein Albumin Globulin Albumin/Globulin Ratio Lipase Procalcitonin Urine RBC None seen Urine WBC 0-1/hpf Ur Squamous Epith Cells 0-1 /hpf Urine Bacteria None seen Ur Culture Indicated? Specimen cultured SARS-CoV-2 (PCR) Assessment & Plan Assessment & Plan narrative: This patient requires acute care inpatient hospital management for acute left forearm cellulitis with possible DVT of brachial vein, after failing outpatient managment. The patient is at much higher risk for medical and surgical complications because of her diagnosis of metastatic breast cancer metastasizing to the lung. These factors increase the difficulty and complexity of medical and surgical interventions and increases the chances of poor outcomes such as morbidity and mortality. The patient has history of diabetes, hyperlipidemia, hypertension, and sleep apnea are also all contributing risk factors to further medical complications and reduced healing and recovery. 1. Cellulitis left forearm, acute, nonpurulent, present on admission-with secondary findings to suggest possible DVT of brachial vein in the left arm - Vascular ultrasound:Deep venous thrombus in the paired brachial veins the left upper extremity. Given their diminutive size, chronicity of this finding is uncertain. -rule out osteomyelitis, gas gangrene necrotizing fasciitis. Determine if infection is staph or not/MRSA-blood cultures pending. -patient admitted for risk factors for MRSA, due to cancer diagnosis glucose 146, lipase negative, procalcitonin negative. -ESR and CRP to help rule out osteomyelitis, if suspicion is high for osteomy elitis order x-ray then on MRI. -elevate affected arm. -monitor for hyponatremia elevated CPK or AST -patient for medical surgical admit, vital signs q.4 hours, intake and output monitored Q shift, weight measure daily, diet: Regular, IV fluids: LR at 100 cc/hour. -patient given ampicillin/Sulbactan in the ED, ordered vancomycin per pharmacy, enoxaparin recommended for treatment of VTE in patients with malignancy dosing 1.5mg/kg Q24/hr-prescribed 0.5 mg/kg b.i.d.(65mg BID) for a total of 130 mg Q 24 hours, Eliquis dose given in ED -daily labs ordered CBC, CMP, PT INR. Procalcitonin Qam 2. Breast cancer metastasized to lung, acute on chronic, present on admission -will continue patient's Letrozole & palbociclib 3. Non insulin-dependent type 2 diabetes, acute on chronic, present on admi ssion, likely secondary to hyperlipidemia and hypertension -will hold patient's metformin, placed on low-dose sliding scale, diabetes protocols in place monitor for hyper/hypoglycemia 4. Hypertension, essential, chronic, not present on admission, well controlled Continue patient's losartan and hydrochlorothiazide 5. Hyperlipidemia, chronic, control unknown, not present on admission -continue patient's Lipitor 6. Depression, chronic, not present on admission -patient denies suicidal ideation, continue patient's Effexor 7. sleep apnea w/use of cpap, acute on chronic, not present on admission -pt to use cpap at night Code status: Full code Surrogate decision maker:spouse Pato Cast COVID PCR: Negative VTE DVT prophylaxis: Eliquis given in ER, enoxaparin b.i.d. and SCDs Scores GCS [place] coma scale eye opening: Spontaneous [place] coma scale verbal response: Orientated [place] coma scale motor response: Obey commands [place] coma scale total score: 15 SOFA PaO2/FIO2: >=400 mmHg Platelets: >= 150 Bilirubin: < 1.2 mg/dL Hypotension: MAP >= 70 mmHg [place] Coma Scale: 15 Renal: < 1.2 mg/dL SOFA Score: 0 Wells' Criteria for PE Clinical signs and symptoms of DVT: Yes PE is #1 Dx or equally likely: No Heart rate > 100: No Immobilization at least 3 days or surg in previous 4 weeks: No History of PE or DVT: No Hemoptysis: No Malignancy w/Treatment within 6 months or palliative: Yes Wells' PE Score total: 4
[2020-05-11] MEDS: VANCOMYCIN 2,000 MG/400 ML PIGGYBACK 200 MG IV (03:50)
[2020-05-11 05:53] LABS: Add Manual Diff / Slide Review NO; Basophils Absolute Auto 0 /uL (0-100); Basophils Percent Auto 0.5 % (0-2); Eosinophils Absolute Auto 0 /uL (0-450); Eosinophils Percent Auto 0.3 % (2-4); Hemoglobin 10.5 g/dL (12.0-16.0); Lymphocytes Absolute Auto 1700 /uL (1100-4500); Mean Corpuscular HGB Conc 33.9 % (30-36); Mean Corpuscular Hemoglobin 36.2 PG (26-34); Mean Corpuscular Volume 106.7 fL (80-100); Monocytes Absolute Auto 200 /uL (0-900); Monocytes Percent Auto 4.5 % (3-14); Neutrophils Absolute Auto 3200 /uL (1500-7000); Neutrophils Percent Auto 61.7 % (50-75); Platelet Count 291 X10^3/uL (150-400); Red Blood Cell Count 2.91 X10^6/uL (4.0-5.2); Red Cell Distribution Width 15.9 % (11.6-14.8); White Blood Cell Count 5.2 X10^3/uL (4.5-11.0)
[2020-05-11 05:59] LABS: INR 1.2 (0.9-1.3); Prothrombin Time 13.3 SECONDS (10.1-12.7)
[2020-05-11 06:06] LABS: BUN Creatinine Ratio 22.7 (6-22); Blood Urea Nitrogen 17 mg/dL (7-17); Carbon Dioxide 26 mmol/L (22-32); Chloride 107 mmol/L (98-107); Estimated Glomerular Filt Rate > 60.0 mL/min (>60); Glucose 124 mg/dL (70-100); HEMOLYSIS 16 (0-50); Potassium 3.2 mmol/L (3.4-5.1); Sodium 139 mmol/L (137-145)
[2020-05-11 06:11] LABS: Erythrocyte Sedimentation Rate 75 MM/HR (0-20)
[2020-05-11] MEDS: PANTOPRAZOLE 20 MG TABLET PO (06:34)
[2020-05-11] MEDS: ATORVASTATIN 20 MG TABLET 40 MG PO (08:39)
[2020-05-11] MEDS: DOCUSATE 100 MG CAPSULE PO (08:39)
[2020-05-11] MEDS: hydroCHLOROthiazide 25 MG TABLET 12.5 MG PO (08:40)
[2020-05-11] MEDS: LOSARTAN 50 MG TABLET PO (08:41)
[2020-05-11] MEDS: VENLAFAXINE ER 75 MG CAP 150 MG PO (08:41)
[2020-05-11] MEDS: LETROZOLE 2.5 MG TABLET PO (10:57)
[2020-05-11] MEDS: PALBOCICLIB 125 MG 125 EACH PO (10:57)
[2020-05-11] MEDS: VANCOMYCIN 1,000 MG/200 ML PIGGYBACK 200 MG IV (12:47)
--- NOTE | 2020-05-11 14:32 | PC.NURSE ---
Discharge note: Patient discharge home per MD order. Redness to LUE, significantly improving. VSS and afebrile. Discharge instructions given to both patient and spouse, discussed importance of F/U with PMD, Doxycicline and Xarelto adherence, and s/sx of worsening infections. Both verbalized understanding of instructions. Ambulating independently in room, dressed self without assistance. Home via private vehicle, accompanied by spouse.
[2020-05-11 20:35] LABS: Acinetobacter baumannii Not Detected (Not Detect); Candida albicans Not Detected (Not Detect); Candida glabrata Not Detected (Not Detect); Candida krusei Not Detected (Not Detect); Candida parapsilosis Not Detected (Not Detect); Candida tropicalis Not Detected (Not Detect); E. coli Not Detected (Not Detect); Enterobacter cloacae complex Not Detected (Not Detect); Enterobacteriaceae species Not Detected (Not Detect); Enterococcus species Not Detected (Not Detect); Haemophilus influenzae Not Detected (Not Detect); Listeria monocytogenes Not Detected (Not Detect); Methicillin-resistant gene Detected (Not Detect); Neisseria meningitidis Not Detected (Not Detect); Proteus species Not Detected (Not Detect); Pseudomonas aeruginosa Not Detected (Not Detect); Serratia marcescens Not Detected (Not Detect); Staphylococcus species Detected (Not Detect); Streptococcus agalactiae (Gr B Not Detected (Not Detect); Streptococcus pneumonia Not Detected (Not Detect); Streptococcus pyogenes (Gr A) Not Detected (Not Detect); Streptococcus species Not Detected (Not Detect)
== END 2020-05-12 15:11 | disposition home or self-care (01) | DRG 603 ==
LOC: ED 20:27 → AC 05-11 00:35
PROVIDERS: Admitting Provider Nurse Practitioner Family; Emergency Provider Emergency Medicine; PCP Student in an Organized Health Care Education/Training Program; Visit Provider Nurse Practitioner Family
DX: L03.114 Cellulitis of left upper limb (principal); I82.622 Acute embolism and thrombosis of deep veins of left upper extremity; C78.02 Secondary malignant neoplasm of left lung; C78.01 Secondary malignant neoplasm of right lung; E11.9 Type 2 diabetes mellitus without complications; Z79.84 Long term (current) use of oral hypoglycemic drugs; I10 Essential (primary) hypertension; E78.5 Hyperlipidemia, unspecified; F32.9 Major depressive disorder, single episode, unspecified; G47.30 Sleep apnea, unspecified; Z85.3 Personal history of malignant neoplasm of breast; Z20.822 Contact with and (suspected) exposure to COVID-19
CPT/HCPCS: 36415; 80048; 80053; 81003; 81015; 82962; 83036; 83605; 83690; 84145; 85025; 85610; 85651; 85730; 87040; 87086; 87147; 87150; 87205; 87635; 93971; 96361; 96365; 99284; 99285; C9803; G0378; J0295; J1650

== ENCOUNTER 2020-05-12 09:33 | Inpatient (IN) | payer OTHER, SELFPAY ==
[2020-05-11 00:57] VITALS: BMI 44.8
--- NOTE | 2020-05-12 11:18 | PC.NURSE ---
Addendum entered by Sindy Mcdowell R.N. 05/12/20 15:11: DC instructions provided with extra education regarding ABX. No questions remain. pt ambulated out of hospital and to private vehicle. Addendum entered by Sindy Mcdowell R.N. 05/12/20 14:24: PIV access unsuccessful. Dr. Gill made aware and informed pt that blood culture results were most like contaminants and she can DC home today. pt awaiting ride and is changing. All belongings packed up. No tele, no PIV. Addendum entered by Sindy Mcdowell R.N. 05/12/20 12:35: Correction: swelling and erythema concentrated to lower right extremity should read swelling and erythema concentrated to right upper extremity, forearm area Addendum entered by Sindy Mcdowell R.N. 05/12/20 12:29: Correction to left extremity: swelling and erythema concentrated to lower right extremity. Scattered abrasions to entire extremity. As well as right extremity. pt associates abrasions to a dermatological condition which is being tracked by dermatology. States that stress induces nodules which are itchy which causes her to scratch. Original Note: pt arrived at 1108 to room 203 as direct admission per Dr. Gill. Oriented to room, collected COVID nasal swab and sent to lab. Instructed pt to change into gown. pt denying pain, left upper extremity swollen with scattered abrasions to forearm and upper arm, areas open to air, mild erythema when compared to RUE. SBA in room. instructed to keep mask on while visiting.
[2020-05-12 11:31] VITALS: BP 142/82; PULSE 107; RESP 17; TEMP 36.2; O2SAT 96
[2020-05-12 11:56] VITALS: BMI 45.0
[2020-05-12 13:52] LABS: COVID19 - ADMIT (NP swab/PCR) Negative (Negative)
[2020-05-12 15:49] LABS: Add Manual Diff / Slide Review NO; Basophils Absolute Auto 0 /uL (0-100); Basophils Percent Auto 0.9 % (0-2); Eosinophils Absolute Auto 100 /uL (0-450); Eosinophils Percent Auto 1.3 % (2-4); Hematocrit 35.1 % (36-46); Hemoglobin 11.7 g/dL (12.0-16.0); Lymphocytes Absolute Auto 1000 /uL (1100-4500); Lymphocytes Percent Auto 23.9 % (25-40); Mean Corpuscular HGB Conc 33.4 % (30-36); Mean Corpuscular Hemoglobin 36.1 PG (26-34); Mean Corpuscular Volume 108.1 fL (80-100); Monocytes Absolute Auto 100 /uL (0-900); Monocytes Percent Auto 3.1 % (3-14); Neutrophils Absolute Auto 2900 /uL (1500-7000); Neutrophils Percent Auto 70.8 % (50-75); Platelet Count 308 X10^3/uL (150-400); Red Blood Cell Count 3.24 X10^6/uL (4.0-5.2); Red Cell Distribution Width 15.7 % (11.6-14.8); White Blood Cell Count 4.1 X10^3/uL (4.5-11.0)
[2020-05-12 15:53] LABS: BUN Creatinine Ratio 23.6 (6-22); Blood Urea Nitrogen 21 mg/dL (7-17); Calcium 10.3 mg/dL (8.4-10.2); Carbon Dioxide 25 mmol/L (22-32); Chloride 105 mmol/L (98-107); Estimated Glomerular Filt Rate > 60.0 mL/min (>60); Glucose 107 mg/dL (70-100); HEMOLYSIS 18 (0-50); Potassium 3.3 mmol/L (3.4-5.1); Sodium 142 mmol/L (137-145)
--- NOTE | 2020-05-12 18:11 | P.HP_ITS ---
History of Present Illness History of Present Illness Date Patient Seen: 05/12/20 Chief complaint: bacterimia Narrative: Patient is a 59-year-old female who was discharged from hospital yest erday after being treated for left arm cellulitis. She also was found to have a broncho cephalic superficial facial DVT in the left arm. She was placed on antibiotics in addition to Xarelto for her DVT. We were called last evening that 1 of 2 blood cultures were positive for Staph species. Patient was notified and asked to return to the hospital for evaluation. Final culture results showed Staph epidermidis and this was felt to be a contaminant and therefore the patient was allowed to be discharged home to resume her doxycycline at home. She had no further symptoms. Her left arm had improved. She had no fever chills. Patient was improving significantly. Patient History Medical History Arthritis Breast cancer, left breast Depression Diabetes Edema HTN (hypertension) Hyperlipidemia Insomnia Lateral epicondylitis Osteopenia Sleep apnea with use of continuous positive airway pressure (CPAP) Surgical History History of ankle surgery Hx of cholecystectomy Hx of shoulder surgery S/P lumpectomy, left breast Family & Social History Family History Mother Diabetes mellitus Heart attack Father Coronary bypass graft mechanical complication Hypertension Social History: household members spouse Safety & Behavioral: Feels Safe in Current Yes Environment Suicidal Ideation Description None Suicide Plan Description No Plan Tobacco & Substance use: Smoking Status Never smoker alcohol intake current alcohol intake frequency 0-2 drinks per day Substance Use Type does not use Meds Home Medications and Allergies Home Medications Medication Instructions Recorded Confirmed Type venlafaxine [Effexor XR] 150 mg PO QDAY #0 12/07/16 05/12/20 History atorvastatin [Lipitor] 40 mg PO DAILY 11/02/17 05/12/20 History hydrochlorothiazide 25 mg PO DAILY 11/02/17 05/12/20 History losartan 50 mg DAILY 07/21/19 05/12/20 History metformin 2,000 mg PO DAILY 07/21/19 05/12/20 History Ibrance 125 mg PO DAILY #63 cap 11/03/19 05/12/20 Rx letrozole [Femara] 2.5 mg PO DAILY #90 tab 11/03/19 05/12/20 Rx Xarelto 10 mg PO DAILY 45 Days tab 05/11/20 05/12/20 Rx doxycycline hyclate 100 mg PO BID #14 cap 05/11/20 05/12/20 Rx L.acidoph,saliva-B.bif-S.therm 1 cap PO DAILY 05/12/20 05/12/20 History [Acidophilus Probiotic Blend] Allergies Allergy/AdvReac Type Severity Reaction Status Date / Time cephalexin [CEPHALEXIN] Allergy Mild Vomiting Verified 05/10/20 20:11 Review of Systems Review of Systems ROS: Yes All systems reviewed with the patient and are negative except as otherwise documented Exam Vital Signs (past 8 hours): - 05/12/20 11:31 Temperature 97.2 F L Pulse Rate 107 H Respiratory Rate 17 Blood Pressure 142/82 H Pulse Oximetry 96 Oxygen Flow Rate 0 Narrative Exam Narrative: Pleasant female lying in bed in no obvious distress HEENT: Normocephalic atraumatic, extraocular muscles are intact, oropharynx is clear, neck is supple Lungs: Clear to auscultation Cardiac exam: Regular rate and rhythm normal S1-S2 Abdomen: Soft and nontender Extremities: Left arm with decreased erythema, decreased warmth, decreased swelling Objective Labs Result Diagrams: 05/12/20 12:10 05/12/20 12:10 Labs: Laboratory Results - last 24 hr 05/12/20 05/12/20 05/12/20 12:10 12:10 13:00 WBC 4.1 L RBC 3.24 L Hgb 11.7 L Hct 35.1 L MCV 108.1 H MCH 36.1 H MCHC 33.4 RDW 15.7 H Plt Count 308 Neut % (Auto) 70.8 Lymph % (Auto) 23.9 L [place] % (Auto) 3.1 Eos % (Auto) 1.3 L Baso % (Auto) 0.9 Neut # (Auto) 2900 Lymph # (Auto) 1000 L [place] # (Auto) 100 Eos # (Auto) 100 Baso # (Auto) 0 Sodium 142 Potassium 3.3 L Chloride 105 Carbon Dioxide 25 BUN 21 H Creatinine 0.89 Estimated GFR > 60.0 BUN/Creatinine Ratio 23.6 H Glucose 107 H Calcium 10.3 H SARS-CoV-2 (PCR) Negative Assessment & Plan Assessment & Plan narrative: 1. Staph epidermidis bacteremia, 1/2 bottles likely content 2. Cellulitis 3. History of breast cancer 4. Superficial DVT of the left upper extremity Plan patient will be discharged back home and will continue treatment as outlined
== END 2020-05-12 15:11 | disposition home or self-care (01) | DRG 603 ==
PROVIDERS: Admitting Provider Internal Medicine; PCP Student in an Organized Health Care Education/Training Program; Referring Provider Internal Medicine; Visit Provider Internal Medicine
DX: L03.114 Cellulitis of left upper limb (principal)
CPT/HCPCS: 36415; 80048; 82962; 85025; 87040; 87635; C9803

== ENCOUNTER → 2020-07-30 12:25 | Outpatient (CLI) | payer OTHER, SELFPAY ==
[2020-07-30 14:17] LABS: Alanine Aminotransferase 22 IU/L (<35); Albumin 4.5 g/dL (3.5-5.0); Albumin Globulin Ratio 1.2 (1.0-2.8); Alkaline Phosphatase 99 U/L (38-126); Aspartate Aminotransferase 27 IU/L (14-36); BUN Creatinine Ratio 29.5 (6-22); Bilirubin Total 0.4 mg/dL (0.2-1.3); Blood Urea Nitrogen 26 mg/dL (7-17); Calcium 10.4 mg/dL (8.4-10.2); Carbon Dioxide 28 mmol/L (22-32); Chloride 100 mmol/L (98-107); Estimated Glomerular Filt Rate > 60.0 mL/min (>60); Globulin 3.7 g/dL (1.7-4.1); Glucose 123 mg/dL (80-110); HEMOLYSIS < 15 (0-50); Potassium 3.9 mmol/L (3.4-5.1); Sodium 139 mmol/L (137-145); Total Protein 8.2 g/dL (6.3-8.2)
== END ==
PROVIDERS: PCP Student in an Organized Health Care Education/Training Program; Referring Provider Internal Medicine Hematology & Oncology; Visit Provider Internal Medicine Hematology & Oncology
DX: C50.919 Malignant neoplasm of unspecified site of unspecified female breast (principal); C78.00 Secondary malignant neoplasm of unspecified lung
CPT/HCPCS: 36415; 80053

== ENCOUNTER → 2020-08-02 10:58 | Outpatient (CLI) | payer OTHER, SELFPAY ==
--- NOTE | 2020-08-02 11:00 | DI.CT.S_ITS ---
PROCEDURE: CT CHEST ABD PEL W CON INDICATIONS: METASTATIC BREAST CANCER TECHNIQUE: After the administration of intravenous contrast, 5 mm thick sections acquired from the lung apices to the symphysis. 2.5 mm thick coronal and sagittal reformats were acquired. Additional 7 mm thick coronal maximum intensity projection (MIP) reformats acquired through the lungs. Optional 10-minute delayed imaging may be performed from the kidneys to the bladder. For radiation dose reduction, the following was used: automated exposure control, adjustment of mA and/or kV according to patient size. COMPARISON: [facility], CT, CT CHEST ABD PEL W CON, 10/30/2019, 15:18. FINDINGS: CHEST: Lungs: Scattered scarring/atelectasis. No discrete or suspicious pulmonary nodules identified. Few sub 5 mm nodular foci on the prior studies are decreased or resolved. Postsurgical changes with staple line seen in the right lung Pleura: No pleural effusions or pneumothorax. Heart: Heart size is normal. No pericardial effusion. Chest nodes: Previously described left supraclavicular lymph node is not well seen on the current exam. Thyroid gland: Negative. Aorta: Normal in size. Pulmonary arteries: Normal. Esophagus: Normal. Postsurgical sequela and clips seen within the left breast and left axilla. ABDOMEN: Liver: Hepatic steatosis. Gallbladder: Surgically absent Bile ducts: Normal. Pancreas: Normal. Spleen: Normal. Adrenals: Normal. Kidneys and ureters: No hydronephrosis. Incidentally noted 2 mm right nephrolithiasis on image 79/2. Interval resolution of previous right ureteral calculus. Stomach and duodenum: Normal. Bowel: Incidental colonic diverticulosis noted. There is large amount of stool seen throughout the colon. Other: No free fluid or air. Abdominal nodes: Normal. Aorta and IVC: Normal in size. Ventral wall: Normal. PELVIS: Bladder: Normal. Inguinal region: No hernia. Pelvic nodes: Normal. Bones: Spondylytic changes and facet arthropathy. No vertebral body compression fracture. IMPRESSION: No specific evidence for active metastatic disease. Stable or resolving sub 5 mm pulmonary nodules presumably granulomatous/postinflammatory in nature, and background scarring/atelectasis. Unchanged right nephrolithiasis. Resolved right ureteral calculus. Dictated by: Erick Kemp M.D. on 08/02/2020 at 13:51 Approved by: Erick Kemp M.D. on 08/02/2020 at 14:01
== END ==
PROVIDERS: PCP Student in an Organized Health Care Education/Training Program; Referring Provider Internal Medicine Hematology & Oncology; Visit Provider Internal Medicine Hematology & Oncology
DX: C50.919 Malignant neoplasm of unspecified site of unspecified female breast (principal); C78.00 Secondary malignant neoplasm of unspecified lung; R91.8 Other nonspecific abnormal finding of lung field; N20.0 Calculus of kidney
CPT/HCPCS: 71260; 74177; Q9967

== ENCOUNTER → 2021-02-28 08:11 | Outpatient (CLI) | payer OTHER, SELFPAY ==
[2021-02-28 09:00] LABS: Add Manual Diff / Slide Review NO; Basophils Absolute Auto 0 /uL (0-100); Basophils Percent Auto 1.1 % (0-2); Eosinophils Absolute Auto 0 /uL (0-450); Eosinophils Percent Auto 1.9 % (2-4); Hematocrit 35.9 % (36-46); Hemoglobin 12.4 g/dL (12.0-16.0); Lymphocytes Absolute Auto 1100 /uL (1100-4500); Lymphocytes Percent Auto 42.9 % (25-40); Mean Corpuscular HGB Conc 34.6 % (30-36); Mean Corpuscular Hemoglobin 36.3 PG (26-34); Mean Corpuscular Volume 105.1 fL (80-100); Monocytes Absolute Auto 100 /uL (0-900); Monocytes Percent Auto 5.8 % (3-14); Neutrophils Absolute Auto 1200 /uL (1500-7000); Neutrophils Percent Auto 48.3 % (50-75); Platelet Count 219 X10^3/uL (150-400); Red Blood Cell Count 3.42 X10^6/uL (4.0-5.2); Red Cell Distribution Width 14.8 % (11.6-14.8); White Blood Cell Count 2.5 X10^3/uL (4.5-11.0)
[2021-02-28 09:15] LABS: Alanine Aminotransferase 13 IU/L (<35); Albumin 4.1 g/dL (3.5-5.0); Albumin Globulin Ratio 1.2 (1.0-2.8); Alkaline Phosphatase 84 U/L (38-126); Aspartate Aminotransferase 23 IU/L (14-36); BUN Creatinine Ratio 16.1 (6-22); Bilirubin Total 0.3 mg/dL (0.2-1.3); Blood Urea Nitrogen 15 mg/dL (7-17); Calcium 9.4 mg/dL (8.4-10.2); Carbon Dioxide 28 mmol/L (22-32); Chloride 107 mmol/L (98-107); Estimated Glomerular Filt Rate > 60.0 mL/min (>60); Globulin 3.5 g/dL (1.7-4.1); Glucose 145 mg/dL (80-110); HEMOLYSIS < 15 (0-50); Potassium 3.6 mmol/L (3.4-5.1); Sodium 143 mmol/L (137-145); Total Protein 7.6 g/dL (6.3-8.2)
[2021-02-28 09:45] LABS: Cancer Antigen 125 9.6 U/mL (0-35)
--- NOTE | 2021-02-28 10:30 | DI.CT.S_ITS ---
PROCEDURE: CT CHEST ABD PEL W CON INDICATIONS: metastatic breast cancer TECHNIQUE: After the administration of oral and intravenous contrast, axial sections acquired from the supraclavicular neck to the pubic symphysis. Coronal and sagittal reformats were performed. For radiation dose reduction, the following was used: automated exposure control, adjustment of mA and/or kV according to patient size. COMPARISON:[facility], CT, CT CHEST ABD PEL W CON, 08/02/2020, 11:56. FINDINGS: Image quality: Excellent. CHEST: Lower Neck: No enlarged lymph nodes. Thyroid: Within normal limits. Axillae: No enlarged lymph nodes. Left axillary clips. Chest Wall: Postsurgical change in the left breast. Lungs and Airways: Several small scattered foci of ground-glass opacity, some of which appear nodular. For example: -Left upper lobe, (3/72), new. -Left upper lobe nodular focus, (3/112), new. -Right middle lobe 0.8 cm, (3/146), new. Many of the previously seen ground-glass foci are resolved. There is mild dependent atelectasis. Airways are clear. Pleura: No pneumothorax or pleural effusions. Heart: Heart size is normal. No pericardial effusion. Thoracic Vessels: The aorta and pulmonary arteries demonstrate normal size. Mediastinum and Dariela: No enlarged lymph nodes. Esophagus: No wall thickening. No hiatal hernia. ABDOMEN: Liver: Suspects hepatic steatosis. No focal lesion seen. Gallbladder: Absent. Biliary ducts: Unremarkable. Pancreas: Unremarkable. Spleen: Unremarkable. Adrenal Glands: No nodule. Kidneys and Ureters: No hydronephrosis. Nonobstructing right kidney stone measuring 0.4 cm. No solid renal mass. Stomach and Bowel: Stomach, small bowel loops, and colon are unremarkable. Diverticulosis. A few tiny calcified mesenteric nodules, left pelvis and right pericolic gutter, unchanged. Peritoneum: No abnormal intraperitoneal fluid. No free air. Ventral Wall: Tiny umbilical hernia. Abdominal Nodes: No retroperitoneal or mesenteric adenopathy by size criteria. Vessels: Aorta and inferior vena cava are normal in size. Mild calcified plaque. PELVIS: Pelvic Organs: Anteverted uterus. Bladder: Unremarkable. Pelvic Nodes: No enlarged lymph nodes. Miscellaneous: No inguinal hernias are seen. Bones: No suspicious lesion. [id number] bilateral hip DJD. Degenerative change at the pubic symphysis. IMPRESSION: 1. Scattered ground-glass pulmonary opacities. Majority of these are new compared to the prior CT. The majority of the previously seen opacities are resolved. Favor infectious/inflammatory etiology. -Recommend continued imaging surveillance. 2. No mass identified. No adenopathy. Postsurgical changes in the left breast and axilla. 3. No suspicious bony lesions. 4. Small nonobstructing right kidney stone. Dictated by: Fantasma Mcneil M.D. on 02/28/2021 at 11:29 Approved by: Fantasma Mcneil M.D. on 02/28/2021 at 11:45
[2021-02-28 22:47] LABS: CA 15-3 12.4 U/mL (0.0-25.0); Cancer Antigen 27.29 19.5 U/mL (0.0-38.6)
== END ==
PROVIDERS: PCP Student in an Organized Health Care Education/Training Program; Referring Provider Internal Medicine Hematology & Oncology; Visit Provider Internal Medicine Hematology & Oncology
DX: C50.912 Malignant neoplasm of unspecified site of left female breast (principal); N20.0 Calculus of kidney
CPT/HCPCS: 36415; 71260; 74177; 80053; 85025; 86300; 86304

== ENCOUNTER → 2021-03-10 15:32 | Outpatient (CLI) | payer OTHER, SELFPAY ==
--- NOTE | 2021-03-10 15:33 | DI.CT.S_ITS ---
PROCEDURE: CT CHEST WO CON INDICATIONS: metastatic breast cancer TECHNIQUE: Noncontrast 5 mm thick sections acquired from the pulmonary apices to the posterior costophrenic angles. 1 mm lung window, 5 mm thick coronal and sagittal and 7 mm axial MIP reformats were then acquired. For radiation dose reduction, the following was used: automated exposure control, adjustment of mA and/or kV according to patient size. COMPARISON: [facility], [place], PET NECK TO MID THIGH, 05/23/2019, 13:23. [facility], CT, CT CHEST ABD PEL W CON, 02/28/2021, 9:35. [facility], CT, CT CHEST ABD PEL W CON, 08/02/2020, 11:56. [facility], CT, CT CHEST ABD PEL W CON, 10/30/2019, 15:18. FINDINGS: Image quality: Excellent. Lungs and pleura: There are multiple ground-glass lung nodules bilaterally. Compared to the last exam, nodules are decreased in size. Reference lesions are listed in the following: Nodule 1: 0.9 x 1.2 cm; left upper lobe; series 2, image 68; previously 1.3 x 2.2 cm. Nodule 2: 0.5 cm; lateral left upper lobe; series 2, image 91; previously 0.8 cm. Nodule 3: 1 cm; superior left lower lobe; series 2, image 166; previously 1.2 cm. Nodule 4: 0.5 cm; lateral right upper lobe; series 2 image 130; previously 0.8 cm. No acute air space opacities. No pleural effusions or pneumothorax. Central and peripheral airways are patent and normal in caliber. Mediastinum: Heart size is normal. No pericardial effusion. No mediastinal adenopathy by size criteria. Thoracic aorta and central pulmonary arteries are normal in size. Esophagus is normal in caliber. No hiatal hernia. Bones and chest wall: Surgical clips in the left breast. No suspicious bony lesions. No vertebral body compression fractures. No axillary or supraclavicular adenopathy by size criteria. Thyroid gland is normal. Abdomen: Visualized upper abdominal solid organs and bowel loops appear normal in the absence of contrast. IMPRESSION: 1. Interval decrease in size of multiple ground-glass nodules. 2. No new suspicious lung nodules. 3. No lymphadenopathy in thorax. Dictated by: Steff Don M.D. on 03/11/2021 at 9:31 Approved by: Steff Don M.D. on 03/11/2021 at 10:31
== END ==
PROVIDERS: PCP Student in an Organized Health Care Education/Training Program; Referring Provider Internal Medicine Hematology & Oncology; Visit Provider Internal Medicine Hematology & Oncology
DX: C50.912 Malignant neoplasm of unspecified site of left female breast (principal); R91.8 Other nonspecific abnormal finding of lung field
CPT/HCPCS: 71250

== ENCOUNTER → 2021-08-10 11:37 | Outpatient (CLI) | payer OTHER, SELFPAY ==
--- NOTE | 2021-08-10 11:37 | DI.CT.S_ITS ---
PROCEDURE: CT CHEST ABD PEL WO CON INDICATIONS: metastatic breast cancer TECHNIQUE: After the administration of oral contrast, 5 mm thick sections acquired from the lung apices to the symphysis pubis. 5 mm thick coronal and sagittal reformats acquired, with additional 7 mm coronal MIP reformats through the lungs. For radiation dose reduction, the following was used: automated exposure control, adjustment of mA and/or kV according to patient size. COMPARISON: [facility], CT, CT CHEST ABD PEL W CON, 02/28/2021, 9:35. [facility], CT, CT CHEST WO CON, 03/10/2021, 15:39. FINDINGS: Image quality: Excellent. CHEST: Lungs and pleura: Previously identified nodules resolved with the exception of a punctate nodule medial left upper lobe on series 3, image 64. New punctate nodule within the right middle lobe on series 3, image 94. No pleural effusions or pneumothorax. Central and peripheral airways are patent are normal in caliber. Mediastinum: Heart size is normal. No pericardial effusion. No mediastinal adenopathy by CT size criteria. Thoracic aorta and central pulmonary arteries are normal in size. Esophagus is normal in caliber. No hiatal hernia. Chest wall: No axillary or supraclavicular adenopathy by size criteria. Clips are present left axilla. Thyroid gland is unremarkable . ABDOMEN: Solid organs: Liver is normal in size. Gallbladder unremarkable . Pancreas is normal in contours. Spleen is normal in size. No adrenal nodules. Both kidneys are normal in size, without hydronephrosis. There is a 5 mm right inferior pole renal calculus Hounsfield units 628, unchanged. Peritoneum and bowel: Small and large bowel loops are normal in caliber and wall thickness. No free fluid or air. Nodes and vessels: No retroperitoneal or mesenteric adenopathy by size criteria. Aorta and inferior vena cava are normal in size. Miscellaneous: No ventral hernias. PELVIS: Genitourinary: Bladder wall thickness is normal. Miscellaneous: No inguinal hernias or adenopathy. Bones: No suspicious bony lesions. No vertebral body compression fractures. IMPRESSION: Previously identified pulmonary nodules demonstrate near complete interval resolution except as noted above. Questionable punctate new nodule in the right middle lobe as above. This could represent volume averaging between vascular structures and interval attention to this region is recommended on follow-up exams. Left breast and axillary postsurgical change. No evidence of metastatic disease within the abdomen or pelvis. Dictated by: Porsha Paz M.D. on 08/10/2021 at 14:11 Approved by: Porsha Paz M.D. on 08/10/2021 at 14:28
== END ==
PROVIDERS: PCP Student in an Organized Health Care Education/Training Program; Referring Provider Internal Medicine Hematology & Oncology; Visit Provider Internal Medicine Hematology & Oncology
DX: C78.01 Secondary malignant neoplasm of right lung (principal); Z85.3 Personal history of malignant neoplasm of breast; R91.8 Other nonspecific abnormal finding of lung field; R79.89 Other specified abnormal findings of blood chemistry; Z86.718 Personal history of other venous thrombosis and embolism; Z79.01 Long term (current) use of anticoagulants
CPT/HCPCS: 36415; 71250; 74176; 80053

== ENCOUNTER → 2021-11-28 12:22 | Outpatient (CLI) | payer OTHER, SELFPAY ==
--- NOTE | 2021-11-28 12:23 | DI.MRI.S_ITS ---
PROCEDURE: MR HEAD/BRAIN WO/W CON INDICATIONS: metastatic breast cancer, now with left hand. TECHNIQUE: Noncontrast axial T1 spin echo, axial T2 fast spin echo, sagittal and axial FLAIR, coronal T2 fast spin echo, axial gradient echo, axial diffusion and ADC through the brain. After the administration of contrast, axial and coronal and sagittal T1 spin echo with fat saturation through the brain. COMPARISON: None. FINDINGS: Image quality: This examination is limited by involuntary motion artifact. CSF spaces: Basal cisterns are patent. No extra-axial fluid collections. Ventricles are normal in size and shape. Brain: No midline shift. No intracranial bleeds or masses. No abnormal intracranial enhancement. There is cerebral volume loss for age. There is periventricular white matter chronic small vessel ischemic change. The brainstem appears normal. Diffusion-weighted images demonstrate no acute ischemic insults. No chronic ischemic insults. Normal intravascular flow voids are present. Skull and face: Calvarial marrow is normal in signal. Orbits appear normal. Note is made of bilateral lens replacements. Sinuses: Sinuses and mastoids appear clear. IMPRESSION: Motion limited study, yet without jarod masses or abnormal enhancement. No findings of acute or subacute infarction can be seen. Dictated by: El Rodriguez M.D. on 11/28/2021 at 12:56 Approved by: El Rodriguez M.D. on 11/28/2021 at 12:58
== END ==
PROVIDERS: PCP Family Medicine; Referring Provider Internal Medicine Hematology & Oncology; Visit Provider Internal Medicine Hematology & Oncology
DX: I82.622 Acute embolism and thrombosis of deep veins of left upper extremity (principal); C50.912 Malignant neoplasm of unspecified site of left female breast; C78.00 Secondary malignant neoplasm of unspecified lung
CPT/HCPCS: 70553; A9579

== ENCOUNTER → 2022-09-21 13:38 | Outpatient (CLI) | payer OTHER, SELFPAY ==
--- NOTE | 2022-09-21 13:39 | DI.CT.S_ITS ---
PROCEDURE: CT CHEST WO CON INDICATIONS: breast cancer TECHNIQUE: Noncontrast 5 mm thick sections acquired from the pulmonary apices to the posterior costophrenic angles. 1 mm lung window, 5 mm thick coronal and sagittal and 7 mm axial MIP reformats were then acquired. For radiation dose reduction, the following was used: automated exposure control, adjustment of mA and/or kV according to patient size. COMPARISON: [facility], , CT THORAX W/O CONTRAST, 03/24/2022, 13:06. [facility], CT, CT CHEST WO CON, 03/10/2021, 15:39. FINDINGS: Image quality: Excellent. Lungs and pleura: No acute air space opacities. Subpleural posterolateral left lower lobe solid nodule measuring about 2 mm is present on series 3, image 201. Occasional bilateral juxta fissural lymph nodes. Vertical scar in the anterior right upper lobe. Pleural scarring at the anterior right lung base. Interval resolution of several patchy ground-glass opacities seen previously in the left upper lobe no suspicious lung nodules. No pleural effusions or pneumothorax. Central and peripheral airways are patent and normal in caliber. Mediastinum: Heart size is normal. No pericardial effusion. No mediastinal adenopathy by size criteria. Thoracic aorta and central pulmonary arteries are normal in size. Esophagus is normal in caliber. No hiatal hernia. Bones and chest wall: Surgical clips in the left axilla. No adenopathy in the lower neck or either axillary region. Partially imaged surgical changes in the left lateral breast. Thyroid gland has a normal CT appearance. Chest wall is within normal limits. No suspicious bone lesions. Abdomen: Visualized upper abdominal solid organs and bowel loops appear normal in the absence of contrast. IMPRESSION: 1. Single 2 mm left lower lobe lung nodule is present, similar to slightly less apparent compared to prior studies. No other evidence of metastatic disease in the lungs. 2. Surgical changes in the left breast and left axilla. Dictated by: Pamela Laureano M.D. on 09/21/2022 at 16:11 Approved by: Pamela Laureano M.D. on 09/21/2022 at 16:22
== END ==
PROVIDERS: PCP Student in an Organized Health Care Education/Training Program; Referring Provider Internal Medicine Hematology & Oncology; Visit Provider Internal Medicine Hematology & Oncology
DX: C50.912 Malignant neoplasm of unspecified site of left female breast (principal); R91.1 Solitary pulmonary nodule
CPT/HCPCS: 71250

== ENCOUNTER → 2023-04-15 11:44 | Outpatient (CLI) | payer OTHER, SELFPAY ==
--- NOTE | 2023-04-15 | DI.CT.S_ITS ---
PROCEDURE: CT CHEST WO CON INDICATIONS: Malignant neoplasm of unspecified site of left fem TECHNIQUE: Noncontrast 5 mm thick sections acquired from the pulmonary apices to the posterior costophrenic angles. 1 mm lung window, 5 mm thick coronal and sagittal and 7 mm axial MIP reformats were then acquired. For radiation dose reduction, the following was used: automated exposure control, adjustment of mA and/or kV according to patient size. COMPARISON: [facility], CT, CT CHEST WO CON, 09/21/2022, 13:47. FINDINGS: Image quality: Diagnostic. Lower Neck: No enlarged lymph nodes. Thyroid: No thyroid nodules which require sonographic follow up, per consensus guidelines. Axillae: No enlarged lymph nodes. Postsurgical changes within the axilla. Chest Wall: Postsurgical changes in the left breast are partially visualized. Bones: Unremarkable. Lungs and Pleura: No pneumothorax or pleural effusions. 2 mm left lower lobe subpleural nodule is again noted (3/233). Stable 3 mm left upper lobe nodule (3/77). Few additional scattered micro nodules are similar appearance to prior. Redemonstration of few fissural nodules which are favored to represent lymph nodes. Linear atelectasis versus scarring within the right upper lobe and left lung base. Heart: Heart size is normal. No pericardial effusion. Thoracic Vessels: The aorta and pulmonary arteries demonstrate normal size. Mild atherosclerotic vascular calcifications. Mediastinum and Dariela: No enlarged lymph nodes. Esophagus: No wall thickening. No hiatal hernia. Upper Abdomen: Hepatic steatosis. IMPRESSION: Scattered pulmonary micro nodules which are similar in appearance to prior. No new or enlarging pulmonary nodules are seen. Dictated by: Johnny Chaves M.D. on 04/15/2023 at 13:28 Approved by: Johnny Chaves M.D. on 04/15/2023 at 13:36
== END ==
PROVIDERS: PCP Student in an Organized Health Care Education/Training Program; Referring Provider Internal Medicine Hematology & Oncology; Visit Provider Internal Medicine Hematology & Oncology
DX: C50.912 Malignant neoplasm of unspecified site of left female breast (principal); C78.02 Secondary malignant neoplasm of left lung; R91.8 Other nonspecific abnormal finding of lung field; K76.0 Fatty (change of) liver, not elsewhere classified
CPT/HCPCS: 71250

== ENCOUNTER 2025-02-06 19:17 | Emergency (ER) | payer OTHER, SELFPAY ==
[2024-10-04 01:27] VITALS: BMI 44.3
[2025-02-06 19:36] VITALS: BP 160/72; PULSE 95; RESP 16; TEMP 36.6; O2SAT 100; BMI 43.0
[2025-02-06 20:25] LABS: Add Manual Diff / Slide Review NO; Hematocrit 34.5 % (36-46); Hemoglobin 11.7 g/dL (12.0-16.0); Lymphocytes Absolute Auto 1100 /uL (1100-4500); Mean Corpuscular HGB Conc 33.9 % (30-36); Mean Corpuscular Hemoglobin 34.5 PG (26-34); Mean Corpuscular Volume 101.9 fL (80-100); Platelet Count 242 X10^3/uL (150-400)
[2025-02-06 20:28] LABS: Alanine Aminotransferase 14 IU/L (<35); Albumin 4.3 g/dL (3.5-5.0); Albumin Globulin Ratio 1.1 (1.0-2.8); Alkaline Phosphatase 80 U/L (38-126); Blood Urea Nitrogen 16 mg/dL (7-17); Calcium 9.6 mg/dL (8.4-10.2); Carbon Dioxide 25 mmol/L (22-32); Chloride 106 mmol/L (98-107); Estimated Glomerular Filt Rate > 60 mL/min (>60); Globulin 3.9 g/dL (1.7-4.1); Glucose 106 mg/dL (70-99); HEMOLYSIS 100 (0-50); Sodium 140 mmol/L (137-145); Total Protein 8.2 g/dL (6.3-8.2)
[2025-02-06 20:29] LABS: Potassium 4.2 mmol/L (3.4-5.1)
[2025-02-06 21:12] VITALS: BP 138/63; PULSE 89; RESP 17; O2SAT 98
--- NOTE | 2025-02-06 23:48 | ED.EXTPRO ---
HPI - Extremity Problem General Chief complaint: Extremity Problem,Nontraumatic Stated complaint: poss cellulitis in L arm Time Seen by Provider: 02/06/25 23:47 Source: patient Mode of arrival: Ambulatory History of Present Illness HPI Narrative: With a history of breast cancer with lymph node removal and lymphedema of the left upper extremity he now presents with increasing redness pain and swelling in the entire left upper extremity with the last 24 hours. She had chills last night no overt fever no nausea vomiting diarrhea no palpitations. This is her 2nd episode of cellulitis in the upper extremity this year. Related Data Home Medications ?Medication ?Instructions ?Recorded ?Confirmed venlafaxine 150 mg 150 mg PO QDAY ##0 12/07/16 10/04/24 capsule,extended release 24 hr (Effexor XR) atorvastatin 40 mg tablet (Lipitor) 40 mg PO DAILY 11/02/17 10/04/24 hydrochlorothiazide 12.5 mg capsule 12.5 mg PO DAILY 11/02/17 10/04/24 losartan 50 mg tablet 50 mg PO DAILY 07/21/19 10/04/24 L.acidophil,salivari-Bifido 1 cap PO DAILY 05/12/20 10/04/24 bifidum-Strep thermoph 175 mg capsule (Acidophilus Probiotic Blend) bupropion HCl 200 mg tablet,12 hr 150 mg PO DAILY 04/04/21 10/04/24 sustained-release abemaciclib 150 mg tablet 150 mg PO BID 10/04/24 10/04/24 (Verzenio) ashwagandha extract 500 mg capsule 1,000 mg PO DAILY 10/04/24 10/04/24 metformin 500 mg tablet,extended 500 mg PO BID 10/04/24 10/04/24 release 24 hr Previous Rx's ?Medication ?Instructions ?Recorded letrozole 2.5 mg tablet (Femara) 2.5 mg PO DAILY #90 tabs 11/03/19 rivaroxaban 10 mg tablet (Xarelto) 10 mg PO DAILY left arm DVT #90 12/20/20 tabs letrozole 2.5 mg tablet 2.5 mg PO DAILY #90 tabs 07/03/22 cefdinir 300 mg capsule 300 mg PO BID #20 caps 10/06/24 clindamycin HCl 300 mg capsule 300 mg PO TID #30 caps 08/25/25 cefdinir 300 mg capsule 300 mg PO BID #10 caps 02/06/25 clindamycin HCl 300 mg capsule 300 mg PO BID 7 days #30 caps 02/06/25 Allergies Allergy/AdvReac Type Severity Reaction Status Date / Time cephalexin (CEPHALEXIN) AdvReac Mild Vomiting Verified 10/05/24 12:51 Review of Systems Review of Systems Narrative: Pertinent positive and negative findings as per HPI Patient History Medical History (Updated 02/07/25 @ 00:05 by Rachna Adams MD) Breast cancer, left breast Osteopenia Lateral epicondylitis Insomnia Depression Diabetes Arthritis Sleep apnea with use of continuous positive airway pressure (CPAP) Edema Hyperlipidemia HTN (hypertension) Surgical History S/P lumpectomy, left breast History of ankle surgery Hx of shoulder surgery Hx of cholecystectomy Family History Mother Diabetes mellitus Heart attack Father Coronary bypass graft mechanical complication Hypertension Social History household members: spouse Smoking Status: Never smoker alcohol intake: current substance use type: does not use Smoking Status: Never smoker alcohol intake frequency: 0-2 drinks per day Exam Initial Vital Signs Initial Vital Signs: Vital Signs Temperature 97.9 F 02/06/25 19:36 Pulse Rate 95 H 02/06/25 19:36 Respiratory Rate 16 02/06/25 19:36 Blood Pressure 160/72 H 02/06/25 19:36 Pulse Oximetry 100 02/06/25 19:36 Oxygen Delivery Method Room Air 02/06/25 19:36 General: Healthy appearing, in no acute distress. Able to give a complete and coherent history. Well-nourished well-developed HEENT: Moist mucous membranes, normal sclera with reactive pupils, Respiratory: Lungs are clear to auscultation, no wheezing no rales no rhonchi. Full and symmetrical air movement Cardiac: Regular rate and rhythm no murmurs no bruits Abdomen: Soft, nontender, no rebound or guarding, no flank pain Neurologic: Grossly neurologically intact with no obvious asymmetries or abnormalities Extremities: Left upper extremity lymphedema at baseline with increasing lymphedema redness from the wrist to mid humerus warmth no obvious access source for infection and no obvious abscess. Psych: Cooperative, appropriate insight and affect Course Orders Ordered: ED Orders 02/06/25 20:00 CBC Auto Diff [Complete Blood Count AUTO DIFF] Stat CMP [Comprehensive Metabolic Panel] Stat Discontinued Medications Clindamycin HCl (Clindamycin 150 Mg Capsule) 300 mg PO NOW ONE Stop: 02/06/25 23:55 Ceftriaxone Sodium 2,000 mg/ (Sodium Chloride) 100 mls @ 200 mls/hr IV NOW ONE Stop: 02/06/25 23:55 Vital Signs Vital signs: Vital Signs - 8 hr 02/06/25 19:36 02/06/25 21:12 Temperature 97.9 F Pulse Rate 95 H 89 Respiratory Rate 16 17 Blood Pressure 160/72 H 138/63 Pulse Oximetry 100 98 Oxygen Delivery Method Room Air Room Air MDM - Extremity (Nontraumatic) Lab Data 02/06/25 20:00 02/06/25 20:00 Labs: Lab Results 02/06/25 Range/Units 20:00 WBC 4.8 (4.5-11.0) X10^3/uL RBC 3.39 L (4.0-5.2) X10^6/uL Hgb 11.7 L (12.0-16.0) g/dL Hct 34.5 L (36-46) % MCV 101.9 H (80-100) fL MCH 34.5 H (26-34) PG MCHC 33.9 (30-36) % RDW 16.6 H (11.6-14.8) % Plt Count 242 (150-400) X10^3/uL Neut % (Auto) 71.3 (50-75) % Lymph % (Auto) 23.6 L (25-40) % [place] % (Auto) 3.7 (3-14) % Eos % (Auto) 0.7 L (2-4) % Baso % (Auto) 0.7 (0-2) % Neut # (Auto) 3400 (0291-0528) /uL Lymph # (Auto) 1100 (5649-5405) /uL [place] # (Auto) 200 (0-900) /uL Eos # (Auto) 0 (0-450) /uL Baso # (Auto) 0 (0-100) /uL Sodium 140 (137-145) mmol/L Potassium 4.2 (3.4-5.1) mmol/L Chloride 106 (98-107) mmol/L Carbon Dioxide 25 (22-32) mmol/L BUN 16 (7-17) mg/dL Creatinine 1.04 (0.52-1.04) mg/dL Estimated GFR > 60 (>60) mL/min BUN/Creatinine Ratio 15.4 (6-22) Glucose 106 H (70-99) mg/dL Calcium 9.6 (8.4-10.2) mg/dL Total Bilirubin 0.8 (0.2-1.3) mg/dL AST 37 H (14-36) IU/L ALT 14 (<35) IU/L Alkaline Phosphatase 80 (38-126) U/L Total Protein 8.2 (6.3-8.2) g/dL Albumin 4.3 (3.5-5.0) g/dL Globulin 3.9 (1.7-4.1) g/dL Albumin/Globulin Ratio 1.1 (1.0-2.8) MDM Narrative Medical decision making narrative: 64-year-old woman with a history of breast cancer lymph node dissection and resulting lymphedema in the left upper extremity. She has had prior episodes of cellulitis in this area she has also had a DVT in the left upper extremity a number of years ago it did resolve completely she continues her anticoagulation. Over the last 24 hours she has been having chills and increasing pain and erythema in the left arm. No actual fevers. She is not tachycardic, tachypneic nor febrile in the emergency department Review of records indicates that she was discharged from the hospital in September of 2024 after a severe episode of cellulitis with developing sepsis from this extremity. At that time she was treated with ceftriaxone successfully discharged home with cefdinir and clindamycin. As that was effective recently I am going to choose so same antibiotics in. Blood work does not show significant leukocytosis and chemistries are reassuring. There is no evidence of sepsis at this time 64-year-old woman with lymphedema in the left upper extremity with developing cellulitis in the upper extremity over the last 24 hours without evidence of sepsis. She is given initial dose of 2 g of ceftriaxone and initial oral clindamycin and discharged home with prescriptions for 10 days of cefdinir and 10 days of clindamycin along with instructions to return if symptoms worsen, fevers develop any type of confusion or worsening pain. At this point there is no indication for further imaging or additional workup and she is safely discharged Discharge Plan Departure Patient Disposition: Home Clinical Impression: Cellulitis of arm, left, Lymphedema, Breast cancer Instructions: DI for Cellulitis -- Adult Activity Restrictions/Additional Instructions: Thank you for coming in early today Based on your clinical exam you definitely your developing a cellulitis in your left arm due to the baseline lymphedema. This is caused by bacteria fortunately your blood work does not show any evidence of bacteria is spreading through your body (sepsis), and you do not need to be in the hospital at this time Based on your similar episode in September, I have given you a dose of ceftriaxone in the emergency department through your IV and started your 1st dose of oral clindamycin. I have already sent a prescription for cefdinir and clindamycin, the to oral antibiotics you were given last time, to [facility]. As these were effective last time I am assuming they would be effective this time. If you are worsening, worsening fevers, the redness isn't getting last, the pain is getting worse you are developing new symptoms you do need to return to the emergency department Prescriptions: New cefdinir 300 mg capsule 300 mg PO BID Qty: 10 0RF clindamycin HCl 300 mg capsule 300 mg PO BID 7 Days Qty: 30 0RF No Action venlafaxine [Effexor XR] 150 MG capsule,extended release 24hr 150 mg PO QDAY Qty: 0 losartan 50 mg Tablet 50 mg PO DAILY letrozole [Femara] 2.5 mg Tablet 2.5 mg PO DAILY Qty: 90 3RF Xarelto 10 mg Tablet 10 mg PO DAILY Qty: 90 3RF bupropion HCl 200 mg Tablet Sustained-Release 12 Hr 150 mg PO DAILY letrozole 2.5 mg Tablet 2.5 mg PO DAILY Qty: 90 3RF metformin 500 mg tablet extended release 24 hr 500 mg PO BID Verzenio 150 mg tablet 150 mg PO BID ashwagandha extract 500 mg capsule 1,000 mg PO DAILY clindamycin HCl 300 mg capsule 300 mg PO TID Qty: 30 0RF cefdinir 300 mg capsule 300 mg PO BID Qty: 20 0RF atorvastatin [Lipitor] 40 mg Tablet 40 mg PO DAILY hydrochlorothiazide 12.5 mg Capsule 12.5 mg PO DAILY L.acidkendra,saliva-B.bif-S.therm [Acidophilus Probiotic Blend] 175 mg Capsule 1 cap PO DAILY Referrals: Arnold Bennett MD [Primary Care Provider, Family Practice] Stand Alone Forms: Patient Portal/API
[2025-02-07] MEDS: cefTRIAXone 2,000 MG in SODIUM CHLORIDE 0.9% 100 ML 200 MG IV (00:29)
[2025-02-07] MEDS: CLINDAMYCIN 150 MG CAPSULE 300 MG PO (00:29)
[2025-02-07 00:56] VITALS: BP 123/66; PULSE 96; RESP 16; O2SAT 98
== END 2025-02-07 00:57 | disposition home or self-care (01) ==
PROVIDERS: Emergency Provider Emergency Medicine; PCP Family Medicine
DX: L03.114 Cellulitis of left upper limb (principal); I89.0 Lymphedema, not elsewhere classified; C50.912 Malignant neoplasm of unspecified site of left female breast
CPT/HCPCS: 36415; 80053; 85025; 96365; 99284; J0696; J7050

== ENCOUNTER 2025-02-11 15:42 | Emergency (ER) | payer OTHER, SELFPAY ==
[2024-10-04 01:27] VITALS: BMI 44.3
[2025-02-11 16:20] VITALS: BP 158/71; PULSE 60; RESP 17; TEMP 37.4; O2SAT 98; BMI 45.0
--- NOTE | 2025-02-11 18:57 | ED.ALLEREA ---
HPI - Allergic Reaction General Chief complaint: Allergic Reaction Stated complaint: reaction to medication, both legs red & itchy Time Seen by Provider: 02/11/25 15:58 Source: patient Mode of arrival: Family Vehicle History of Present Illness HPI narrative: 64-year-old female with history of breast cancer and post operative chronic left upper extremity lymphedema, seen here 02/06/2025 for left upper extremity cellulitis, also some reported bilateral lower extremity redness, given IV dose of ceftriaxone with prescription for cefdinir, also started on clindamycin antibiotic. She has improvement of her leg redness, and her left upper arm redness. However today started to have diffuse rash itching. Went to walk-in clinic, referred here for possible allergic reaction treatment. She has not started on any therapies on her own, or from walk-in clinic. Related Data Home Medications ?Medication ?Instructions ?Recorded ?Confirmed venlafaxine 150 mg 150 mg PO QDAY ##0 12/07/16 10/04/24 capsule,extended release 24 hr (Effexor XR) atorvastatin 40 mg tablet (Lipitor) 40 mg PO DAILY 11/02/17 10/04/24 hydrochlorothiazide 12.5 mg capsule 12.5 mg PO DAILY 11/02/17 10/04/24 losartan 50 mg tablet 50 mg PO DAILY 07/21/19 10/04/24 L.acidophil,salivari-Bifido 1 cap PO DAILY 05/12/20 10/04/24 bifidum-Strep thermoph 175 mg capsule (Acidophilus Probiotic Blend) bupropion HCl 200 mg tablet,12 hr 150 mg PO DAILY 04/04/21 10/04/24 sustained-release abemaciclib 150 mg tablet 150 mg PO BID 10/04/24 10/04/24 (Verzenio) ashwagandha extract 500 mg capsule 1,000 mg PO DAILY 10/04/24 10/04/24 metformin 500 mg tablet,extended 500 mg PO BID 10/04/24 10/04/24 release 24 hr Previous Rx's ?Medication ?Instructions ?Recorded letrozole 2.5 mg tablet (Femara) 2.5 mg PO DAILY #90 tabs 11/03/19 rivaroxaban 10 mg tablet (Xarelto) 10 mg PO DAILY left arm DVT #90 12/20/20 tabs letrozole 2.5 mg tablet 2.5 mg PO DAILY #90 tabs 07/03/22 cefdinir 300 mg capsule 300 mg PO BID #20 caps 10/06/24 clindamycin HCl 300 mg capsule 300 mg PO TID #30 caps 10/06/24 cefdinir 300 mg capsule 300 mg PO BID #10 caps 02/06/25 clindamycin HCl 300 mg capsule 300 mg PO BID 7 days #30 caps 02/06/25 diphenhydramine HCl 25 mg capsule 50 mg (2 x 25 mg) PO QID #40 caps 02/11/25 (Benadryl) prednisone 20 mg tablet 40 mg (2 x 20 mg) PO DAILY 5 days 02/11/25 #10 tabs Allergies Allergy/AdvReac Type Severity Reaction Status Date / Time Cephalosporins Allergy Rash Verified 02/11/25 16:20 cephalexin (CEPHALEXIN) AdvReac Mild Vomiting Verified 02/11/25 16:20 Patient History Medical History (Updated 02/11/25 @ 22:28 by Andrew Rai MD) Breast cancer, left breast Osteopenia Lateral epicondylitis Insomnia Depression Diabetes Arthritis Sleep apnea with use of continuous positive airway pressure (CPAP) Edema Hyperlipidemia HTN (hypertension) Surgical History S/P lumpectomy, left breast History of ankle surgery Hx of shoulder surgery Hx of cholecystectomy Family History Mother Diabetes mellitus Heart attack Father Coronary bypass graft mechanical complication Hypertension Social History household members: spouse Smoking Status: Never smoker alcohol intake: current substance use type: does not use Smoking Status: Never smoker alcohol intake frequency: 0-2 drinks per day Exam Narrative Exam Narrative: GENERAL: Well-developed patient, in mild distress. HEAD: Atraumatic. Normocephalic. EYES: Pupils equal round and reactive. Extraocular motions intact. No scleral icterus. No injection or drainage. ENT: No angioedema changes to eyelids lips tongue. NECK: Trachea midline. Non tender CARDIOVASCULAR: Regular rate and rhythm without murmurs, gallops, or rubs. RESPIRATORY: Clear to auscultation. Breath sounds equal bilaterally. No wheezes, rales, or rhonchi. GASTROINTESTINAL: Abdomen soft, non-tender, nondistended. EXTREMITIES: No edema or joint tenderness. BACK: Nontender without deformity or crepitance. No flank tenderness. NEURO: AOx3. Motor functions grossly nonfocal. SKIN: Erythema to left upper extremity, resolving cellulitis. Diffuse patchy urticaria noted Initial Vital Signs Initial Vital Signs: Vital Signs Temperature 99.3 F 02/11/25 16:20 Pulse Rate 60 02/11/25 16:20 Respiratory Rate 17 02/11/25 16:20 Blood Pressure 158/71 H 02/11/25 16:20 Pulse Oximetry 98 02/11/25 16:20 Oxygen Delivery Method Room Air 02/11/25 16:20 Course Orders Ordered: Discontinued Medications Diphenhydramine HCl (Diphenhydramine 50 Mg/Ml Vial) 50 mg IV NOW ONE Stop: 02/11/25 22:23 Last Admin: 02/11/25 22:37 Dose: Not Given Documented By: YOGESH Diphenhydramine HCl (Diphenhydramine 25 Mg Tablet) 50 mg PO NOW ONE Stop: 02/11/25 22:35 Last Admin: 02/11/25 22:39 Dose: 50 mg Documented By: YOGESH Prednisone (Prednisone 20 Mg Tablet) 60 mg PO NOW ONE Stop: 02/11/25 22:23 Last Admin: 02/11/25 22:37 Dose: 60 mg Documented By: YOGESH Vital Signs Vital signs: Vital Signs - 8 hr 02/11/25 22:53 Pulse Rate 56 L Respiratory Rate 18 Blood Pressure 154/70 H Pulse Oximetry 97 Oxygen Delivery Method Room Air MDM - Allergic Reaction MDM Narrative Medical decision making narrative: 64-year-old female was prescribed cefdinir and clindamycin for left upper extremity cellulitis, history of breast cancer with chronic left upper extremity lymphedema. Patient subsequently developed rash, suspected due to cefdinir cephalosporin antibiotic. Oral prednisone and oral Benadryl given, symptoms improved. Prescription sent for further prednisone and also for further antihistamine to her requested pharmacy. Discharged home. Advised to stop the cefdinir, can continue the clindamycin for now. Recheck cellulitis advised with PCP in the next couple of days. Return precautions discussed. Discharged home with family. Discharge Plan Departure Patient Disposition: Home Clinical Impression: Allergic drug reaction, Cellulitis Instructions: DI for Adverse Drug Reaction -- Allergic Activity Restrictions/Additional Instructions: Recent antibiotics cefdinir and clindamycin for left upper extremity cellulitis infection, that seems to be mildly improving on antibiotics. However you might be having an allergic reaction to the antibiotic, most likely this would be cefdinir cephalosporin antibiotic allergy, more so than likely clindamycin allergy. Stopped the cefdinir for now, continue the clindamycin antibiotic for now. Oral steroid and antihistamine given in the emergency department, prescription for further oral steroid prednisone and for antihistamine Benadryl sent to your requested pharmacy. Medications as directed. Recheck Sunday with your regular doctor. Return to this/nearest emergency department for any change worsening symptoms or any concerns prior. Prescriptions: New prednisone 20 mg tablet 40 mg PO DAILY 5 Days Qty: 10 0RF diphenhydramine HCl [Benadryl] 25 mg capsule 50 mg PO QID Qty: 40 0RF No Action venlafaxine [Effexor XR] 150 MG capsule,extended release 24hr 150 mg PO QDAY Qty: 0 losartan 50 mg Tablet 50 mg PO DAILY letrozole [Femara] 2.5 mg Tablet 2.5 mg PO DAILY Qty: 90 3RF Xarelto 10 mg Tablet 10 mg PO DAILY Qty: 90 3RF bupropion HCl 200 mg Tablet Sustained-Release 12 Hr 150 mg PO DAILY letrozole 2.5 mg Tablet 2.5 mg PO DAILY Qty: 90 3RF metformin 500 mg tablet extended release 24 hr 500 mg PO BID Verzenio 150 mg tablet 150 mg PO BID ashwagandha extract 500 mg capsule 1,000 mg PO DAILY clindamycin HCl 300 mg capsule 300 mg PO TID Qty: 30 0RF cefdinir 300 mg capsule 300 mg PO BID Qty: 20 0RF atorvastatin [Lipitor] 40 mg Tablet 40 mg PO DAILY hydrochlorothiazide 12.5 mg Capsule 12.5 mg PO DAILY L.acidoph,saliva-B.bif-S.therm [Acidophilus Probiotic Blend] 175 mg Capsule 1 cap PO DAILY cefdinir 300 mg capsule 300 mg PO BID Qty: 10 0RF clindamycin HCl 300 mg capsule 300 mg PO BID 7 Days Qty: 30 0RF Referrals: Arnold Bennett MD [Primary Care Provider, Family Practice] Stand Alone Forms: Patient Portal/API
[2025-02-11] MEDS: diphenhydrAMINE 25 MG TABLET 50 MG PO (22:39)
[2025-02-11 22:53] VITALS: BP 154/70; PULSE 56; RESP 18; O2SAT 97
== END 2025-02-11 22:55 | disposition home or self-care (01) ==
PROVIDERS: Emergency Provider Emergency Medicine; PCP Family Medicine
DX: R21 Rash and other nonspecific skin eruption (principal); L03.114 Cellulitis of left upper limb; T36.95XA Adverse effect of unspecified systemic antibiotic, initial encounter
CPT/HCPCS: 99283